=== PATIENT | male | born 1945 | race Caucasian/White ===

== ENCOUNTER 2020-07-06 15:51 | Inpatient (IN) | payer MEDICARE ==
--- NOTE | 2020-07-06 16:14 | ED ---
General Adult HPI - General Chief complaint: Upper Respiratory Infection Stated complaint: Altered Mental Status Time Seen by Provider: 07/06/20 15:59 Source: patient, EMS, RN notes reviewed, old records reviewed Mode of arrival: EMS Limitations: no limitations - History of Present Illness Initial comments: 75-year-old male presenting from outside urgent care for evaluation of low-grade fever, cough, increased confusion. According to the transferring physician the patient does have a baseline of dementia. He is alert and oriented 2 with time my evaluation. He himself has no complaints. No headache. No focal numbness or weakness. He does report a cough which he states he always has. He was transported on 2 L nasal cannula with no prior history of knee for supplemental oxygen.. Stable vitals otherwise. No reported vomiting or diarrhea. No reported chest pain. He has had exposure to coronavirus and outpatient x-ray did show interstitial pneumonia consistent with coronavirus. - Related Data Home Medications Medication Instructions Recorded Confirmed Diltiazem HCl [Cartia Xt] 240 mg PO DAILY 07/06/20 07/06/20 QUEtiapine [SEROquel] 100 mg PO HS 07/06/20 07/06/20 Allergies Allergy/AdvReac Type Severity Reaction Status Date / Time tetracycline Allergy Unknown Verified 07/06/20 17:17 Review of Systems ROS Statement: Those systems with pertinent positive or pertinent negative responses have been documented in the HPI. ROS Other: All systems not noted in ROS Statement are negative. Past Medical History Past Medical History: Hypertension Additional Past Medical History / Comment(s): brain anuerysm, dementia, History of Any Multi-Drug Resistant Organisms: None Reported Past Surgical History: Coronary Bypass/CABG Past Psychological History: No Psychological Hx Reported Smoking Status: Former smoker Past Alcohol Use History: None Reported Past Drug Use History: None Reported General Exam Limitations: no limitations General appearance: alert Head exam: Present: atraumatic, normocephalic Eye exam: Present: normal appearance, PERRL ENT exam: Present: mucous membranes dry Respiratory exam: Present: wheezes, rhonchi, decreased breath sounds. Absent: respiratory distress Cardiovascular Exam: Present: regular rate, normal rhythm GI/Abdominal exam: Present: soft. Absent: distended, tenderness, guarding Extremities exam: Present: normal inspection, normal capillary refill. Absent: pedal edema, calf tenderness Neurological exam: Present: alert. Absent: oriented X3, motor sensory deficit Psychiatric exam: Present: normal affect, normal mood Skin exam: Present: warm, dry, intact. Absent: cyanosis, diaphoretic Course Vital Signs 07/06/20 07/06/20 07/06/20 16:06 16:20 17:27 Temperature 98.8 F Pulse Rate 80 87 Respiratory 18 19 Rate Blood Pressure 132/98 139/96 O2 Sat by Pulse 95 98 87 L Oximetry EKG Findings - EKG Comments: EKG Findings:: EKG: Atrial fibrillation, rate is 79, QRS duration 100, QTC 477, no ST segment elevation. I do not see definitive atrial activity to suggest a sinus rhythm. Medical Decision Making - Medical Decision Making 75-year-old male history of dementia presenting with cough, hypoxia, increased confusion. He has come in contact with coronavirus. He does test positive for coronavirus in the emergency department. X-ray performed at outside hospital does show some bilateral lower lobe infiltrates. Workup reveals normal CBC, normal CMP. LDH, CRP, d-dimer are pending. Case discussed with Dr. Watts who will admit. - Lab Data Result diagrams: 07/06/20 16:20 07/06/20 16:20 Lab Results 07/06/20 07/06/20 07/06/20 Range/Units 16:19 16:20 16:20 WBC 4.8 (3.8-10.6) k/uL RBC 4.91 (4.30-5.90) m/uL Hgb 13.7 (13.0-17.5) gm/dL Hct 41.9 (39.0-53.0) % MCV 85.3 (80.0-100.0) fL MCH 27.9 (25.0-35.0) pg MCHC 32.7 (31.0-37.0) g/dL RDW 13.7 (11.5-15.5) % Plt Count 195 (150-450) k/uL MPV 8.0 Neutrophils % 80 % Lymphocytes % 9 % Monocytes % 9 % Eosinophils % 0 % Basophils % 0 % Neutrophils # 3.9 (1.3-7.7) k/uL Lymphocytes # 0.4 L (1.0-4.8) k/uL Monocytes # 0.4 (0-1.0) k/uL Eosinophils # 0.0 (0-0.7) k/uL Basophils # 0.0 (0-0.2) k/uL PT (9.0-12.0) sec INR (<1.2) APTT (22.0-30.0) sec Sodium (137-145) mmol/L Potassium (3.5-5.1) mmol/L Chloride (98-107) mmol/L Carbon Dioxide (22-30) mmol/L Anion Gap mmol/L BUN (9-20) mg/dL Creatinine (0.66-1.25) mg/dL Est GFR (CKD-EPI)AfAm (>60 ml/min/1.73 sqM) Est GFR (CKD-EPI)NonAf (>60 ml/min/1.73 sqM) Glucose (74-99) mg/dL POC Glucose (mg/dL) 99 (75-99) mg/dL POC Glu Compressor Station Engineer Chief ID Elisabet Tom Calcium (8.4-10.2) mg/dL Total Bilirubin (0.2-1.3) mg/dL AST (17-59) U/L ALT (4-49) U/L Alkaline Phosphatase (38-126) U/L NT-Pro-B Natriuret Pep pg/mL Total Protein (6.3-8.2) g/dL Albumin (3.5-5.0) g/dL Coronavirus (PCR) Detected A (Not Detectd) 07/06/20 07/06/20 07/06/20 Range/Units 16:20 16:20 16:20 WBC (3.8-10.6) k/uL RBC (4.30-5.90) m/uL Hgb (13.0-17.5) gm/dL Hct (39.0-53.0) % MCV (80.0-100.0) fL MCH (25.0-35.0) pg MCHC (31.0-37.0) g/dL RDW (11.5-15.5) % Plt Count (150-450) k/uL MPV Neutrophils % % Lymphocytes % % Monocytes % % Eosinophils % % Basophils % % Neutrophils # (1.3-7.7) k/uL Lymphocytes # (1.0-4.8) k/uL Monocytes # (0-1.0) k/uL Eosinophils # (0-0.7) k/uL Basophils # (0-0.2) k/uL PT 10.9 (9.0-12.0) sec INR 1.0 (<1.2) APTT 26.8 (22.0-30.0) sec Sodium 137 (137-145) mmol/L Potassium 4.0 (3.5-5.1) mmol/L Chloride 101 (98-107) mmol/L Carbon Dioxide 26 (22-30) mmol/L Anion Gap 10 mmol/L BUN 28 H (9-20) mg/dL Creatinine 1.09 (0.66-1.25) mg/dL Est GFR (CKD-EPI)AfAm 76 (>60 ml/min/1.73 sqM) Est GFR (CKD-EPI)NonAf 66 (>60 ml/min/1.73 sqM) Glucose 104 H (74-99) mg/dL POC Glucose (mg/dL) (75-99) mg/dL POC Glu Compressor Station Engineer Chief ID Calcium 8.5 (8.4-10.2) mg/dL Total Bilirubin 0.7 (0.2-1.3) mg/dL AST 27 (17-59) U/L ALT 24 (4-49) U/L Alkaline Phosphatase 75 (38-126) U/L NT-Pro-B Natriuret Pep 4730 pg/mL Total Protein 7.1 (6.3-8.2) g/dL Albumin 4.3 (3.5-5.0) g/dL Coronavirus (PCR) (Not Detectd) Disposition Clinical Impression: Pneumonia due to COVID-19 virus, Hypoxia Disposition: ADMITTED IP TO THIS HOSP Condition: Stable Is patient prescribed a controlled substance at d/c from ED?: No Referrals: Roc Brownlee DO [Primary Care Provider] - 1-2 days Decision to Admit Reason: Admit from EC Decision Date: 07/06/20 Decision Time: 17:40
[2020-07-06 16:21] LABS: Glucose,Whole Blood 99 mg/dL (75-99)
[2020-07-06 16:32] LABS: Basophils % (A) 0 %; Eosinophils % (A) 0 %; HCT 41.9 % (39.0-53.0); HGB 13.7 gm/dL (13.0-17.5); Lymphocytes # (A) 0.4 k/uL (1.0-4.8); Lymphocytes % (A) 9 %; MCH 27.9 pg (25.0-35.0); MCHC 32.7 g/dL (31.0-37.0); MCV 85.3 fL (80.0-100.0); Monocytes # (A) 0.4 k/uL (0-1.0); Monocytes % (A) 9 %; Neutrophils # (A) 3.9 k/uL (1.3-7.7); Neutrophils % (A) 80 %; Platelet Count 195 k/uL (150-450); RBC 4.91 m/uL (4.30-5.90); RDW 13.7 % (11.5-15.5); WBC 4.8 k/uL (3.8-10.6)
[2020-07-06 16:40] LABS: Partial Thromboplastin Time 26.8 sec (22.0-30.0); Prothrombin Time 10.9 sec (9.0-12.0)
[2020-07-06 16:41] LABS: Albumin 4.3 g/dL (3.5-5.0); Calcium 8.5 mg/dL (8.4-10.2); Total Bilirubin 0.7 mg/dL (0.2-1.3); Total Protein 7.1 g/dL (6.3-8.2)
--- NOTE | 2020-07-06 17:12 | CT ---
EXAM: CT brain wo con CLINICAL HISTORY: Altered mental status. COMPARISON: None TECHNIQUE: Contiguous axial noncontrast images of the brain were obtained. Coronal and sagittal refor mats were generated and reviewed. Automated does control was used for this exam. FINDINGS: There is no evidence for intracranial hemorrhage, mass effect or midline shift. There is moderate rig ht frontal lobe encephalomalacia with right frontotemporal craniotomy seen. There is also cystic ence phalomalacia of the left frontal lobe. There is moderate white matter disease and parenchymal loss. A neurysmal clip within the sellar region is seen. Ventricular size and configuration is within normal limits for degree of parenchymal volume. The paranasal sinuses are clear. The mastoid air cells are clear. No evidence for calvarial fracture. IMPRESSION: No acute intracranial abnormality. 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
[2020-07-06] MEDS ORDERED: DEXAMETHASONE SOD PHOSPHATE 10 MG/ML 1 ML VIAL IV STA (17:25)
[2020-07-06] MEDS ORDERED: ACETAMINOPHEN TAB 325 MG TAB PO PRN (17:37)
[2020-07-06] MEDS ORDERED: NALOXONE 0.4 MG/ML 1 ML VIAL IV PRN (17:37)
[2020-07-06 18:26] LABS: C Reactive Protein 152.5 mg/L (<10.0)
[2020-07-06 18:46] LABS: Appearance,Urine Clear (Clear); Bacteria,Urine Rare /hpf; Bilirubin,Urine Negative (Negative); Blood,Urine Negative (Negative); Color,Urine Yellow; Glucose,Urine (UA) Negative (Negative); Hyaline Casts,Urine 4 /lpf (0-2); Ketones,Urine Negative (Negative); Leukocyte Esterase,Urine Negative (Negative); Mucus,Urine Rare /hpf; Nitrite,Urine Negative (Negative); PH, Urine 5.5 (5.0-8.0); Protein,Urine 2+ (Negative); RBC,Urine 1 /hpf (0-5); Specific Gravity,Urine 1.026 (1.001-1.035); Urobilinogen,Urine <2.0 mg/dL (<2.0); WBC,Urine 2 /hpf (0-5)
--- NOTE | 2020-07-06 23:08 | P.HPIM ---
History of Present Illness H&P Date: 07/06/20 Patient is a 75-year-old male with a PMH of dementia, history of intracerebral hemorrhage, and A. fib who was sent in to the emergency room from an urgent care center due to hypoxia and COVID pneumonia. History obtained from the daughter via telephone (Audra Javed [phone]). She reports that the patient lives with her and that she was diagnosed with COVID a few days ago. The patient is currently developed low-grade fevers and a cough 2 days ago. They took him to an urgent care center earlier today for evaluation. When they returned to pick him up, the urgent care center had sent him via EMS to the emergency room. The daughter notes that her father has a history of moderate dementia. He is normally oriented to self and sometimes to place but not to time. She reports that he does tend to get worse at night. The patient was seen and evaluated in the emergency room at the bedside. He was a very poor historian and could not relay why he was brought into the emergency room or the events of the day. During the review of systems, the patient answered no to all complaints inclu ding coughing despite having a cough during the interview. The daughter noted that her father appeared to be more confused today. The patient underwent an extensive evaluation in the emergency room which was all reviewed. Vital signs revealed hypoxia with SpO2 of 87% on 2 L nasal cannula oxygen. CT brain was negative for acute changes. EKG revealed A. fib at [address]/T-wave changes noted as reviewed by me. Laboratory evaluation revealed coronavirus PCR positive with CRP 152. Review of Systems Pertinent positives and negatives as discussed in HPI, a complete review of systems was performed and all other systems are negative. Past Medical History Past Medical History: Hypertension Additional Past Medical History / Comment(s): brain anuerysm, dementia, History of Any Multi-Drug Resistant Organisms: None Reported Past Surgical History: Coronary Bypass/CABG Past Psychological History: No Psychological Hx Reported Smoking Status: Former smoker Past Alcohol Use History: None Reported Past Drug Use History: None Reported Medications and Allergies Home Medications Medication Instructions Recorded Confirmed Type Diltiazem HCl [Cartia Xt] 240 mg PO DAILY 07/06/20 07/06/20 History QUEtiapine [SEROquel] 100 mg PO HS 07/06/20 07/06/20 History Allergies Allergy/AdvReac Type Severity Reaction Status Date / Time tetracycline Allergy Unknown Verified 07/06/20 17:17 Physical Exam Vitals: Vital Signs Temp Pulse Resp BP Pulse Ox 07/06/20 20:00 100.3 F H 98 18 150/85 95 07/06/20 18:22 91 18 159/91 94 L 07/06/20 17:27 87 19 139/96 87 L 07/06/20 16:20 98 07/06/20 16:06 98.8 F 80 18 132/98 95 Intake and Output 07/06/20 07/06/20 07/06/20 06:59 14:59 22:59 Other: Weight 77.111 kg General: non toxic, no distress, appears at stated age, overweight Derm: no unusual rashes/lesions no unusual ecchymoses, warm, dry Head: atraumatic, normocephalic, symmetric Eyes: EOMI, no lid lag, anicteric sclera, pupils equal round reactive to light ENT: Nose and ears atraumatic, no thrush, no pharyngeal erythema Neck: No thyromegaly, no cervical lymphadenopathy, trachea midline, supple Mouth: no lip lesion, mucus membranes moist Cardiovascular: S1S2 reg, no murmur, positive posterior tibial pulse bilateral, no edema, capillary refill less than 2 seconds Lungs: Diffuse bilateral rhonchi, no accessory muscle use, no wheezing Abdominal: soft, nontender to palpation, no guarding, no appreciable organomegaly, normal bowel sounds Ext: no gross muscle atrophy, muscle strength 5 out of 5 in all 4 extremities grossly, no contractures, Neuro: CN II-XI grossly intact, light touch intact all 4 extremities, finger to nose within normal limits, Psych: Alert, awake, oriented to person only, not oriented to time or place Results CBC & Chem 7: 07/06/20 16:20 07/06/20 16:20 Labs: Abnormal Lab Results - Last 24 Hours (Table) 07/06/20 07/06/20 07/06/20 Range/Units 16:20 16:20 16:20 Lymphocytes # 0.4 L (1.0-4.8) k/uL D-Dimer (<0.60) mg/L FEU BUN 28 H (9-20) mg/dL Glucose 104 H (74-99) mg/dL C-Reactive Protein (<10.0) mg/L Urine Protein (Negative) Urine Bacteria (None) /hpf Hyaline Casts (0-2) /lpf Urine Mucus (None) /hpf Coronavirus (PCR) Detected A (Not Detectd) 07/06/20 07/06/20 07/06/20 Range/Units 17:52 17:52 18:22 Lymphocytes # (1.0-4.8) k/uL D-Dimer 0.90 H (<0.60) mg/L FEU BUN (9-20) mg/dL Glucose (74-99) mg/dL C-Reactive Protein 152.5 H (<10.0) mg/L Urine Protein 2+ H (Negative) Urine Bacteria Rare H (None) /hpf Hyaline Casts 4 H (0-2) /lpf Urine Mucus Rare H (None) /hpf Coronavirus (PCR) (Not Detectd) Assessment and Plan Plan: COVID-19 pneumonitis with acute hypoxic respiratory failure -Continue dexamethasone -Supplemental oxygen -Monitor inflammatory markers -Pulmonary consult -Zinc, vitamin C, melatonin, vitamin D Acute metabolic encephalopathy with baseline dementia, likely secondary to on- going pneumonia -Continue with home Seroquel Afib, not on AC due to history of IC bleeding -C/w home Cardizem dose DVT prophylaxis -Lovenox The patient is admitted with an anticipated greater than 2 midnight stay for evaluation of COVID CODE STATUS: Full Code Discussed with: Patient, daughter Anticipated discharge date: 2-[address]: home A total of 35 minutes was spent on the care of this complex patient more than 50% of the time was spent in counseling and care coordination.
[2020-07-07 07:48] LABS: HCT 42.6 % (39.0-53.0); HGB 14.4 gm/dL (13.0-17.5); MCH 28.7 pg (25.0-35.0); MCHC 33.7 g/dL (31.0-37.0); Mean Platelet Volume 8.2; Platelet Count 201 k/uL (150-450); RBC 5.01 m/uL (4.30-5.90); RDW 13.5 % (11.5-15.5); WBC 3.4 k/uL (3.8-10.6)
[2020-07-07 07:52] LABS: ALT 25 U/L (4-49); AST 33 U/L (17-59); African American GFR (CKD) >90 (>60 ml/min/1.73 sqM); Albumin 4.2 g/dL (3.5-5.0); Albumin/Globulin Ratio 1.5; Alkaline Phosphatase 78 U/L (38-126); Anion Gap 11 mmol/L; Blood Urea Nitrogen 22 mg/dL (9-20); Calcium 8.4 mg/dL (8.4-10.2); Carbon Dioxide 26 mmol/L (22-30); Chloride 98 mmol/L (98-107); Globulin 2.8 g/dL; Glucose 122 mg/dL (74-99); Non-African American GFR(CKD) 87 (>60 ml/min/1.73 sqM); Potassium 4.4 mmol/L (3.5-5.1); Sodium 135 mmol/L (137-145); Total Bilirubin 0.8 mg/dL (0.2-1.3)
--- NOTE | 2020-07-07 08:06 | XR ---
EXAMINATION TYPE: XR chest 1V portable DATE OF EXAM: 07/07/2020 COMPARISON: 07/06/2020 HISTORY: Shortness of breath TECHNIQUE: Single frontal view of the chest is obtained. FINDINGS: There is mild interstitial opacity in the lung bases bilaterally mid and upper lung zones are essenti ally clear. The heart size is normal and the pulmonary vasculature is not congested. There are sterna l wires. The osseous structures are otherwise intact. There is been no interval change. Impression: mild interstitial opacity in the lung bases unchanged since the prior study. Findings could reflect either acute or chronic changes and clinical correlation is recommended.
[2020-07-07] MEDS: ALBUTEROL HFA INHALER INHALATION SCH ×4 (08:24→21:25)
[2020-07-07] MEDS: ASCORBIC ACID 500 MG TAB PO SCH (08:42)
[2020-07-07] MEDS: dexAMETHasone 2 MG TAB PO SCH (08:43)
[2020-07-07] MEDS: ZINC SULFATE 220 MG CAP PO SCH (08:43)
[2020-07-07] MEDS: CHOLECALCIFEROL 25 MCG (1000 IU) TABLET PO SCH (08:43)
[2020-07-07] MEDS: ENOXAPARIN 40 MG/0.4 ML SYRINGE SQ SCH (08:43)
[2020-07-07] MEDS: guaiFENesin 600 MG TABLET.ER PO SCH ×2 (08:43→20:12)
[2020-07-07] MEDS ORDERED: CHOLECALCIFEROL 25 MCG (1000 IU) TABLET PO SCH (09:00)
[2020-07-07] MEDS: DILTIAZEM CD 240 MG CAP.ER.24H PO SCH (09:43)
--- NOTE | 2020-07-07 11:09 | P.CNPUL ---
History of Present Illness Consult date: 07/07/20 Reason for consult: dyspnea History of present illness: 75-year-old male patient, hospitalized for covert safety-related pneumonia. The patient was diagnosed having covid went urgent care outside the hospital few days ago and the diagnosis was confirmed again yesterday in the hospital. The patient was apparently running a low-grade fever for around 2 days. He is a very poor historian. He does have underlying dementia. He has underlying intracranial cerebral hemorrhage history along with history of atrial fibrillation. In terms of his chest x-ray, the patient's chest x-ray revealed pulmonary infiltrates in the lower lobes more so in the right lower lobe. He has post thoracotomy changes on his chest x-ray. His blood work shows a CRP of 152, LDH of 468, normal renal function, normal liver function tests, the white cell count today is at 3.4 with a hemoglobin of 14.4. He did have some lymphopenia. This is consistent with Covid manipulated pneumonia. His d-dimer is at 0.9. Currently he is on 2 L of oxygen by nasal cannula. He is also on Decadron 6 mg and Lovenox 40 mg subcu. He did have a low-grade fever yesterday of 100.3. He is currently living with his son. No home oxygen. Review of Systems ROS unobtainable: due to mental status Past Medical History Past Medical History: Coronary Artery Disease (CAD), Hypertension Additional Past Medical History / Comment(s): brain anuerysm with a previous intracranial hemorrhage, chronic atrial fibrillation, dementia, CAD and the patient has undergone a previous bypass surgery, hypertension, former smoker History of Any Multi-Drug Resistant Organisms: None Reported Past Surgical History: Coronary Bypass/CABG Past Psychological History: No Psychological Hx Reported Smoking Status: Former smoker Past Alcohol Use History: None Reported Past Drug Use History: None Reported Medications and Allergies Home Medications Medication Instructions Recorded Confirmed Type Diltiazem HCl [Cartia Xt] 240 mg PO DAILY 07/06/20 07/07/20 History QUEtiapine [SEROquel] 100 mg PO HS 07/06/20 07/07/20 History Allergies Allergy/AdvReac Type Severity Reaction Status Date / Time tetracycline Allergy Unknown Verified 07/06/20 17:17 Physical Exam Vitals: Vital Signs Temp Pulse Pulse Resp BP BP Pulse Ox 07/07/20 10:00 98.0 F 61 16 165/109 91 L 07/07/20 06:00 98.7 F 92 19 163/93 94 L 07/07/20 03:15 98.9 F 95 20 159/90 92 L 07/06/20 21:00 99.9 F H 99 21 146/89 91 L 07/06/20 20:00 100.3 F H 98 18 150/85 95 07/06/20 18:22 91 18 159/91 94 L 07/06/20 17:27 87 19 139/96 87 L 07/06/20 16:20 98 07/06/20 16:06 98.8 F 80 18 132/98 95 Intake and Output 07/06/20 07/07/20 07/07/20 22:59 06:59 14:59 Intake Total 250 Balance 250 Intake: Oral 250 Other: Voiding Method Toilet Toilet Diaper Diaper Incontinent Incontinent # Voids 1 Weight 77.111 kg The patient appeared well nourished and normally developed. Vital signs as docu mented. Head exam is unremarkable. No scleral icterus or corneal arcus noted. Neck is without jugular venous distension, thyromegaly, or carotid bruits. Carotid upstrokes are brisk bilaterally. Lungs are clear to auscultation and percussion. Crackles are present in the right lung base and the patient has post thoracotomy scar over the anterior chest area. Cardiac exam reveals the PMI to be normally sized and situated. Rhythm is regular. First and second heart sounds normal. No murmurs, rubs or gallops. Abdominal exam reveals normal bowel sounds, no masses, no organomegaly and no aortic enlargement. Extremities are nonedematous and both femoral and pedal pulses are normal.Examination of the skin revealed no evidence of significant rashes, suspicious appearing nevi or other concerning lesions. Neurologically the patient does not have any focal neurological deficits. Nevertheless, the patient has impairment of the cognitive functions. Poor memory. Poor concentration. For information delivery by the patient. Results - Laboratory Findings CBC and BMP: 07/07/20 06:23 07/07/20 06:23 PT/INR, D-dimer PT 10.9 sec (9.0-12.0) 07/06/20 16:20 INR 1.0 (<1.2) 03/26/21 16:20 D-Dimer 0.90 mg/L FEU (<0.60) H 07/06/20 17:52 Abnormal lab findings: Abnormal Labs 07/06/20 07/06/20 07/06/20 16:20 16:20 16:20 WBC Lymphocytes # 0.4 L D-Dimer Sodium BUN 28 H Glucose 104 H C-Reactive Protein Urine Protein Urine Bacteria Hyaline Casts Urine Mucus Coronavirus (PCR) Detected A 07/06/20 07/06/20 07/06/20 17:52 17:52 18:22 WBC Lymphocytes # D-Dimer 0.90 H Sodium BUN Glucose C-Reactive Protein 152.5 H Urine Protein 2+ H Urine Bacteria Rare H Hyaline Casts 4 H Urine Mucus Rare H Coronavirus (PCR) 07/07/20 07/07/20 06:23 06:23 WBC 3.4 L Lymphocytes # D-Dimer Sodium 135 L BUN 22 H Glucose 122 H C-Reactive Protein Urine Protein Urine Bacteria Hyaline Casts Urine Mucus Coronavirus (PCR) - Diagnostic Findings Chest x-ray: image reviewed Assessment and Plan Plan: 1 acute Covid 19 related pneumonia. The patient has limited infiltration of the lung bases more so on the right. The patient is currently hypoxic at 2 L about 2 by nasal cannula and the patient was started on Decadron. He'll be started on Remdesivir as the patient falls within the window for this treatment. 2 advanced dementia 3 coronary artery disease and a previous bypass surgery 4 chronic A. fib fibrillation on no anticoagulants 5 history of CVA/intracranial hemorrhage 6 hypertension Plan Continue Decadron 6 mg by mouth daily VIT C, D and Zinc Add Remdesivir per protocol as the patient falls within the window and the patient is mildly hypoxic Lovenox 40 mg subcu for DVT prophylaxis, current d-dimer is low Monitor overall pulmonary progress We'll continue to follow
--- NOTE | 2020-07-07 11:57 | P.PN ---
Subjective Progress Note Date: 07/07/20 Patient is doing fairly well today. He is alert to himself and to the place. He denies any specific concerns or complaints. He is pleasantly confused Objective - Vital Signs Vital signs: Vital Signs Temp 98.0 F 07/07/20 10:00 Pulse 61 07/07/20 10:00 Resp 16 07/07/20 10:00 BP 165/109 07/07/20 10:00 Pulse Ox 91 L 07/07/20 10:00 Intake & Output 07/06/20 07/07/20 07/07/20 18:59 06:59 18:59 Intake Total 250 Balance 250 Weight 77.111 kg 77.111 kg Intake: Oral 250 Other: Voiding Method Toilet Toilet Diaper Diaper Incontinent Incontinent # Voids 1 - Exam General: The patient is awake and alert, in no distress Eye: there is normal conjunctiva bilaterally. Neck: The neck is supple, there is no JVD. Cardiovascular: Normal S1-S2, no S3-S4, no murmurs. Respiratory: Lungs clear to auscultation bilaterally Gastrointestinal: Abdomen is soft, nontender Musculoskeletal: There is no pedal edema. Neurological:. Speech is normal. Skin: Skin is warm and dry - Labs CBC & Chem 7: 07/07/20 06:23 07/07/20 06:23 Labs: Abnormal Lab Results - Last 24 Hours (Table) 07/06/20 07/06/20 07/06/20 Range/Units 16:20 16:20 16:20 WBC (3.8-10.6) k/uL Lymphocytes # 0.4 L (1.0-4.8) k/uL D-Dimer (<0.60) mg/L FEU Sodium (137-145) mmol/L BUN 28 H (9-20) mg/dL Glucose 104 H (74-99) mg/dL C-Reactive Protein (<10.0) mg/L Urine Protein (Negative) Urine Bacteria (None) /hpf Hyaline Casts (0-2) /lpf Urine Mucus (None) /hpf Coronavirus (PCR) Detected A (Not Detectd) 07/06/20 07/06/20 07/06/20 Range/Units 17:52 17:52 18:22 WBC (3.8-10.6) k/uL Lymphocytes # (1.0-4.8) k/uL D-Dimer 0.90 H (<0.60) mg/L FEU Sodium (137-145) mmol/L BUN (9-20) mg/dL Glucose (74-99) mg/dL C-Reactive Protein 152.5 H (<10.0) mg/L Urine Protein 2+ H (Negative) Urine Bacteria Rare H (None) /hpf Hyaline Casts 4 H (0-2) /lpf Urine Mucus Rare H (None) /hpf Coronavirus (PCR) (Not Detectd) 07/07/20 07/07/20 Range/Units 06:23 06:23 WBC 3.4 L (3.8-10.6) k/uL Lymphocytes # (1.0-4.8) k/uL D-Dimer (<0.60) mg/L FEU Sodium 135 L (137-145) mmol/L BUN 22 H (9-20) mg/dL Glucose 122 H (74-99) mg/dL C-Reactive Protein (<10.0) mg/L Urine Protein (Negative) Urine Bacteria (None) /hpf Hyaline Casts (0-2) /lpf Urine Mucus (None) /hpf Coronavirus (PCR) (Not Detectd) Assessment and Plan Assessment: This is a 75-year-old male with past medical history noted below significant for advanced dementia who presented to the emergency room with hypoxia. Patient was evaluated in the ER and admitted to the hospital for further management of his medical problems noted below. 1. COVD-19 pneumonia: Seen and evaluated by pulmonary. Started on Decadron day #2 and Remdesivir day #1. Vitamin D, vitamin C, zinc, and melatonin. We will continue supportive care. 2. Acute hypoxic respiratory failure currently on 2 L of oxygen via nasal cannula. 3. Sepsis without septic shock. Secondary to #1. Lactic acid is normal. Patient received IV fluid hydration. 4. Chronic atrial fibrillation, heart rate well controlled. not on anticoagulation secondary to history of intracranial bleed. 5. Advanced dementia with some confusion on presentation may represent acute metabolic encephalopathy. Now resolved. Mental status back to baseline. 6. Chronic medical problems coronary artery disease with history of CABG,. 7. DVT prophylaxis with subcu Lovenox
[2020-07-07] MEDS ORDERED: REMDESIVIR 200 MG in SODIUM CHLORIDE 0.9% 250 ML IVPB ONE (12:00)
[2020-07-07] MEDS: MELATONIN 5 MG TABLET PO SCH (20:12)
[2020-07-07] MEDS: QUEtiapine 100 MG TAB PO SCH (20:13)
[2020-07-08 07:37] LABS: Basophils % (A) 0 %; Eosinophils % (A) 0 %; HCT 41.6 % (39.0-53.0); HGB 13.8 gm/dL (13.0-17.5); Lymphocytes # (A) 0.6 k/uL (1.0-4.8); Lymphocytes % (A) 7 %; MCHC 33.2 g/dL (31.0-37.0); MCV 84.3 fL (80.0-100.0); Mean Platelet Volume 8.6; Monocytes # (A) 0.6 k/uL (0-1.0); Monocytes % (A) 6 %; Neutrophils # (A) 7.8 k/uL (1.3-7.7); Neutrophils % (A) 86 %; Platelet Count 227 k/uL (150-450); RBC 4.94 m/uL (4.30-5.90); RDW 13.8 % (11.5-15.5)
[2020-07-08] MEDS: ALBUTEROL HFA INHALER INHALATION SCH ×4 (08:39→20:30)
[2020-07-08 09:12] LABS: Anion Gap 8.8 mmol/L (4.00-12.00); C Reactive Protein 5.3 mg/dL (0.0-0.8); Calcium 8.5 mg/dL (8.7-10.3); Carbon Dioxide 26.2 mmol/L (21.6-31.8); Non-African American GFR(CKD) 73.3 (60.0-200.0); Potassium 4.2 mmol/L (3.5-5.5)
[2020-07-08] MEDS: ENOXAPARIN 40 MG/0.4 ML SYRINGE SQ SCH (09:16)
[2020-07-08] MEDS: CHOLECALCIFEROL 25 MCG (1000 IU) TABLET PO SCH (09:16)
[2020-07-08] MEDS: dexAMETHasone 2 MG TAB PO SCH (09:16)
[2020-07-08] MEDS: DILTIAZEM CD 240 MG CAP.ER.24H PO SCH (09:16)
[2020-07-08] MEDS: ASCORBIC ACID 500 MG TAB PO SCH (09:16)
[2020-07-08] MEDS: guaiFENesin 600 MG TABLET.ER PO SCH ×2 (09:16→21:35)
[2020-07-08] MEDS: ZINC SULFATE 220 MG CAP PO SCH (09:16)
[2020-07-08 09:23] LABS: Ferritin 918.9 ng/mL (22.0-322.0)
--- NOTE | 2020-07-08 11:41 | P.PN ---
Subjective Progress Note Date: 07/08/20 Patient is doing fairly well today. He denies any specific concerns or complaints. He is pleasantly confused Objective - Vital Signs Vital signs: Vital Signs Temp 98.6 F 07/08/20 10:00 Pulse 79 07/08/20 10:00 Resp 18 07/08/20 10:00 BP 142/88 07/08/20 10:00 Pulse Ox 93 L 07/08/20 10:00 Intake & Output 07/07/20 07/08/20 07/08/20 18:59 06:59 18:59 Other: Voiding Method Toilet Toilet Toilet Diaper Diaper Diaper Incontinent Incontinent Incontinent # Voids 2 - Exam General: The patient is awake and alert, in no distress Eye: there is normal conjunctiva bilaterally. Neck: The neck is supple, there is no JVD. Cardiovascular: Normal S1-S2, no S3-S4, no murmurs. Respiratory: Lungs clear to auscultation bilaterally Gastrointestinal: Abdomen is soft, nontender Musculoskeletal: There is no pedal edema. Neurological:. Speech is normal. Skin: Skin is warm and dry - Labs CBC & Chem 7: 07/08/20 06:22 07/08/20 06:22 Labs: Abnormal Lab Results - Last 24 Hours (Table) 07/08/20 07/08/20 07/08/20 Range/Units 06:22 06:22 06:22 Neutrophils # 7.8 H (1.3-7.7) k/uL Lymphocytes # 0.6 L (1.0-4.8) k/uL D-Dimer 0.62 H (<0.60) mg/L FEU BUN 32.0 H (9.0-27.0) mg/dL BUN/Creatinine Ratio 32.00 H (12.00-20.00) Ratio Calcium 8.5 L (8.7-10.3) mg/dL Ferritin 918.9 H (22.0-322.0) ng/mL C-Reactive Protein 5.3 H (0.0-0.8) mg/dL Assessment and Plan Assessment: This is a 75-year-old male with past medical history noted below significant for advanced dementia who presented to the emergency room with hypoxia. Patient was evaluated in the ER and admitted to the hospital for further management of his medical problems noted below. 1. COVD-19 pneumonia: Seen and evaluated by pulmonary. Started on Decadron day #3 and Remdesivir day #2. Vitamin D, vitamin C, zinc, and melatonin. We will continue supportive care. 2. Acute hypoxic respiratory failure currently on 2 L of oxygen via nasal cannula. 3. Sepsis without septic shock. Secondary to #1. Lactic acid is normal. Patient received IV fluid hydration. 4. Chronic atrial fibrillation, heart rate well controlled. not on anticoagulation secondary to history of intracranial bleed. 5. Advanced dementia with some confusion on presentation may represent acute metabolic encephalopathy. Now resolved. Mental status back to baseline. 6. Chronic medical problems coronary artery disease with history of CABG,. 7. DVT prophylaxis with subcu Lovenox
[2020-07-08] MEDS: REMDESIVIR 100 MG in SODIUM CHLORIDE 0.9% 250 ML IVPB SCH (11:49)
--- NOTE | 2020-07-08 12:20 | P.PN ---
Subjective Progress Note Date: 07/08/20 75-year-old male patient, hospitalized for COVID 19-related pneumonia. The patient was diagnosed having covid went urgent care outside the hospital few days ago and the diagnosis was confirmed again yesterday in the hospital. The patient was apparently running a low-grade fever for around 2 days. He is a very poor historian. He does have underlying dementia. He has underlying intracranial cerebral hemorrhage history along with history of atrial fibrillation. In terms of his chest x-ray, the patient's chest x-ray revealed pulmonary infiltrates in the lower lobes more so in the right lower lobe. He has post thoracotomy changes on his chest x-ray. His blood work shows a CRP of 152, LDH of 468, normal renal function, normal liver function tests, the white cell count today is at 3.4 with a hemoglobin of 14.4. He did have some lymphopenia. This is consistent with Covid manipulated pneumonia. His d-dimer is at 0.9. Currently he is on 2 L of oxygen by nasal cannula. He is also on Decadron 6 mg and Lovenox 40 mg subcu. He did have a low-grade fever yesterday of 100.3. He is currently living with his son. No home oxygen. His evaluation of 07/08/2020, the patient is doing well. He is currently on oxygen at 2 L and his current pulse ox is 98%. He was hospitalized yesterday a nd he was having some fever and shortness of breath. He d-dimer was 0.9. His inflammatory markers were mildly elevated. He was started on Decadron. He was started on REM and he is on day #2. On today's evaluation, his blood work shows no major abnormalities in terms of his CBC. He does have some lymphopenia. His ferritin level is 918, his LDH level is down to 236 and his CRP level is at 5.3. No other significant events otherwise for now. His resting comfortably in bed. He is on Lovenox for Objective - Vital Signs Vital signs: Vital Signs Temp 98.6 F 07/08/20 10:00 Pulse 79 07/08/20 10:00 Resp 18 07/08/20 10:00 BP 142/88 07/08/20 10:00 Pulse Ox 93 L 07/08/20 10:00 Intake & Output 03/07/08/20 07/08/20 18:59 06:59 18:59 Other: Voiding Method Toilet Toilet Toilet Diaper Diaper Diaper Incontinent Incontinent Incontinent # Voids 2 - Exam The patient appeared well nourished and normally developed. Vital signs as documented. Head exam is unremarkable. No scleral icterus or corneal arcus noted. Neck is without jugular venous distension, thyromegaly, or carotid bruits. Carotid upstrokes are brisk bilaterally. Lungs are clear to auscultation and percussion. Crackles are present in the right lung base and the patient has post thoracotomy scar over the anterior chest area. Cardiac exam reveals the PMI to be normally sized and situated. Rhythm is regular. First and second heart sounds normal. No murmurs, rubs or gallops. Abdominal exam reveals normal bowel sounds, no masses, no organomegaly and no aortic enlargement. Extremities are nonedematous and both femoral and pedal pulses are normal.Examination of the skin revealed no evidence of significant rashes, suspicious appearing nevi or other concerning lesions. Neurologically the patient does not have any focal neurological deficits. Nevertheless, the patient has impairment of the cognitive functions. Poor memory. Poor concentration. For information delive ry by the patient. - Labs CBC & Chem 7: 07/08/20 06:22 07/08/20 06:22 Labs: Abnormal Lab Results - Last 24 Hours (Table) 07/08/20 07/08/20 07/08/20 Range/Units 06:22 06:22 06:22 Neutrophils # 7.8 H (1.3-7.7) k/uL Lymphocytes # 0.6 L (1.0-4.8) k/uL D-Dimer 0.62 H (<0.60) mg/L FEU BUN 32.0 H (9.0-27.0) mg/dL BUN/Creatinine Ratio 32.00 H (12.00-20.00) Ratio Calcium 8.5 L (8.7-10.3) mg/dL Ferritin 918.9 H (22.0-322.0) ng/mL C-Reactive Protein 5.3 H (0.0-0.8) mg/dL Assessment and Plan Plan: 1 acute Covid 19 related pneumonia. The patient has limited infiltration of the lung bases more so on the right. The patient is currently hypoxic at 2 L about 2 by nasal cannula and the patient was started on Decadron/ Remdesivir 2 advanced dementia 3 coronary artery disease and a previous bypass surgery 4 chronic A. fib fibrillation on no anticoagulants 5 history of CVA/intracranial hemorrhage 6 hypertension Plan Continue Decadron 6 mg by mouth daily VIT C, D and Zinc Remdesivir per protocol as the patient falls within the window and the patient is mildly hypoxic , day #2 Lovenox 40 mg subcu for DVT prophylaxis, current d-dimer is low Monitor overall pulmonary progress We'll continue to follow
[2020-07-08] MEDS: MELATONIN 5 MG TABLET PO SCH (21:35)
[2020-07-08] MEDS: QUEtiapine 100 MG TAB PO SCH (21:35)
[2020-07-09] MEDS: ZINC SULFATE 220 MG CAP PO SCH (08:26)
[2020-07-09] MEDS: ENOXAPARIN 40 MG/0.4 ML SYRINGE SQ SCH (08:26)
[2020-07-09] MEDS: ASCORBIC ACID 500 MG TAB PO SCH (08:26)
[2020-07-09] MEDS: CHOLECALCIFEROL 25 MCG (1000 IU) TABLET PO SCH (08:26)
[2020-07-09] MEDS: guaiFENesin 600 MG TABLET.ER PO SCH ×2 (08:26→20:49)
[2020-07-09] MEDS: DILTIAZEM CD 240 MG CAP.ER.24H PO SCH (08:26)
[2020-07-09] MEDS: REMDESIVIR 100 MG in SODIUM CHLORIDE 0.9% 250 ML IVPB SCH (08:27)
[2020-07-09] MEDS: ALBUTEROL HFA INHALER INHALATION SCH ×4 (08:55→21:12)
[2020-07-09] MEDS: dexAMETHasone 2 MG TAB PO SCH (12:16)
--- NOTE | 2020-07-09 13:38 | P.PN ---
Subjective Progress Note Date: 07/09/20 Patient is doing fairly well today. He denies any specific concerns or complaints. He is pleasantly confused Objective - Vital Signs Vital signs: Vital Signs Temp 97.9 F 07/09/20 09:48 Pulse 76 07/09/20 09:48 Resp 20 07/09/20 09:48 BP 129/76 07/09/20 09:48 Pulse Ox 91 L 07/09/20 09:48 Intake & Output 07/08/20 07/09/20 07/09/20 18:59 06:59 18:59 Other: Voiding Method Toilet Toilet Diaper Diaper Incontinent Incontinent # Voids 2 - Exam General: The patient is awake and alert, in no distress Eye: there is normal conjunctiva bilaterally. Neck: The neck is supple, there is no JVD. Cardiovascular: Normal S1-S2, no S3-S4, no murmurs. Respiratory: Lungs clear to auscultation bilaterally Gastrointestinal: Abdomen is soft, nontender Musculoskeletal: There is no pedal edema. Neurological:. Speech is normal. Skin: Skin is warm and dry - Labs CBC & Chem 7: 07/08/20 06:22 07/08/20 06:22 Labs: Abnormal Lab Results - Last 24 Hours (Table) 07/08/20 Range/Units 07:10 Procalcitonin 0.32 H (0.02-0.09) ng/mL Assessment and Plan Assessment: This is a 75-year-old male with past medical history noted below significant for advanced dementia who presented to the emergency room with hypoxia. Patient was evaluated in the ER and admitted to the hospital for further management of his medical problems noted below. 1. COVD-19 pneumonia: Seen and evaluated by pulmonary. Started on Decadron day #4 and Remdesivir day #3. Vitamin D, vitamin C, zinc, and melatonin. We will continue supportive care. 2. Acute hypoxic respiratory failure currently on 2 L of oxygen via nasal cannula. 3. Sepsis without septic shock. Secondary to #1. Lactic acid is normal. Patient received IV fluid hydration. 4. Chronic atrial fibrillation, heart rate well controlled. not on anticoagulation secondary to history of intracranial bleed. 5. Advanced dementia with some confusion on presentation may represent acute metabolic encephalopathy. Now resolved. Mental status back to baseline. 6. Chronic medical problems coronary artery disease with history of CABG,. 7. DVT prophylaxis with subcu Lovenox Patient will remain in the hospital until course of Rem is complete
--- NOTE | 2020-07-09 17:21 | P.PN ---
Subjective Progress Note Date: 07/09/20 Principal diagnosis: CoVID 19 pneumonia 75-year-old male patient, hospitalized for COVID 19-related pneumonia. The patient was diagnosed having covid went urgent care outside the hospital few days ago and the diagnosis was confirmed again yesterday in the hospital. The patient was apparently running a low-grade fever for around 2 days. He is a very poor historian. He does have underlying dementia. He has underlying intracranial cerebral hemorrhage history along with history of atrial fibrillation. In terms of his chest x-ray, the patient's chest x-ray revealed pulmonary infiltrates in the lower lobes more so in the right lower lobe. He has post thoracotomy changes on his chest x-ray. His blood work shows a CRP of 152, LDH of 468, normal renal function, normal liver function tests, the white cell count today is at 3.4 with a hemoglobin of 14.4. He did have some lymphopenia. This is consistent with Covid manipulated pneumonia. His d-dimer is at 0.9. Currently he is on 2 L of oxygen by nasal cannula. He is also on Decadron 6 mg and Lovenox 40 mg subcu. He did have a low-grade fever yesterday of 100.3. He is currently living with his son. No home oxygen. His evaluation of 07/08/2020, the patient is doing well. He is currently on oxygen at 2 L and his current pulse ox is 98%. He was hospitalized yesterday and he was having some fever and shortness of breath. He d-dimer was 0.9. His inflammatory markers were mildly elevated. He was started on Decadron. He was started on REM and he is on day #2. On today's evaluation, his blood work shows no major abnormalities in terms of his CBC. He does have some lymphopenia. His ferritin level is 918, his LDH level is down to 236 and his CRP level is at 5.3. No other significant events otherwise for now. His resting comfortably in bed. He is on Lovenox The patient is seen today 07/09/2020 in follow-up on the regular medical floor. He is awake and alert in no acute distress. He is on 4 L/m per nasal cannula. Afebrile. Day #3 of Remdesivir. Recent inflammatory markers had been trending down. Is continued on Decadron, Lovenox, vitamin supplements Objective - Vital Signs Vital signs: Vital Signs Temp 97.9 F 07/09/20 09:48 Pulse 76 07/09/20 09:48 Resp 20 07/09/20 09:48 BP 129/76 07/09/20 09:48 Pulse Ox 91 L 07/09/20 09:48 Intake & Output 07/08/20 07/09/20 07/09/20 18:59 06:59 18:59 Other: Voiding Method Toilet Toilet Diaper Diaper Incontinent Incontinent # Voids 2 - Exam A 75-year-old gentleman, appears well nourished and normally developed. Vital signs as documented. Head exam is unremarkable. No scleral icterus or corneal arcus noted. Neck is without jugular venous distension, thyromegaly, or carotid bruits. Carotid upstrokes are brisk bilaterally. Lungs are clear to auscultation and percussion. Crackles are present in the right lung base and the patient has post thoracotomy scar over the anterior chest area. Cardiac exam reveals the PMI to be normally sized and situated. Rhythm is regular. First and second heart sounds normal. No murmurs, rubs or gallops. Abdominal exam reveals normal bowel sounds, no masses, no organomegaly and no aortic enlargement. Extremities are nonedematous and both femoral and pedal pulses are normal.Examination of the skin revealed no evidence of significant rashes, suspicious appearing nevi or other concerning lesions. Neurologically the patient does not have any focal neurological deficits. Nevertheless, the patient has impairment of the cognitive functions. Poor memory. Poor concentration. For information delivery by the patient. - Labs CBC & Chem 7: 07/08/20 06:22 07/08/20 06:22 Labs: Abnormal Lab Results - Last 24 Hours (Table) 07/08/20 Range/Units 07:10 Procalcitonin 0.32 H (0.02-0.09) ng/mL Assessment and Plan Assessment: 1 acute Covid 19 related pneumonia. The patient has limited infiltration of the lung bases more so on the right. The patient is currently hypoxic at 2 L about 2 by nasal cannula and the patient was started on Decadron/ Remdesivir 2 advanced dementia 3 coronary artery disease and a previous bypass surgery 4 chronic A. fib fibrillation on no anticoagulants 5 history of CVA/intracranial hemorrhage 6 hypertension Plan The patient was seen and evaluated by Dr. Trevor Dowling #3 of Remdesivir Continue Lovenox, Decadron, vitamin supplement Titrate the FiO2 as tolerated We will continue to follow I, the cosigning physician, performed a history & physical examination of the patient. Lungs sounds are clear. Maintaining good O2 saturations in the 90s on 4 L/m per nasal cannula I discussed the assessment and plan of care with my nurse practitioner, Liz Inman. I attest to the above note as dictated by her.
[2020-07-09] MEDS: QUEtiapine 100 MG TAB PO SCH (20:49)
[2020-07-09] MEDS: MELATONIN 5 MG TABLET PO SCH (20:49)
[2020-07-10] MEDS: dexAMETHasone 2 MG TAB PO SCH (08:57)
[2020-07-10] MEDS: DILTIAZEM CD 240 MG CAP.ER.24H PO SCH (08:57)
[2020-07-10] MEDS: ENOXAPARIN 40 MG/0.4 ML SYRINGE SQ SCH (08:57)
[2020-07-10] MEDS: CHOLECALCIFEROL 25 MCG (1000 IU) TABLET PO SCH (08:58)
[2020-07-10] MEDS: ASCORBIC ACID 500 MG TAB PO SCH (08:58)
[2020-07-10] MEDS: ZINC SULFATE 220 MG CAP PO SCH (08:58)
[2020-07-10] MEDS: guaiFENesin 600 MG TABLET.ER PO SCH ×2 (08:58→19:50)
[2020-07-10] MEDS: ALBUTEROL HFA INHALER INHALATION SCH ×4 (09:22→20:56)
[2020-07-10 10:04] LABS: Anion Gap 8.9 mmol/L (4.00-12.00); C Reactive Protein 5.5 mg/dL (0.0-0.8); Calcium 8.8 mg/dL (8.7-10.3); Carbon Dioxide 29.1 mmol/L (21.6-31.8); Non-African American GFR(CKD) 73.3 (60.0-200.0)
--- NOTE | 2020-07-10 10:38 | XR ---
EXAMINATION TYPE: XR chest 1V portable DATE OF EXAM: 07/10/2020 Comparison: 07/07/2020 Clinical History: 75-year-old male CoVID pneumonia Findings: Median sternotomy wires are present. Rightward patient rotation alters the normal cardiomediastinal c ontours. Heart upper limits of normal in size. Mild hyperinflation. Interstitial prominence is simila r. Increasing airspace disease in the periphery of the right mid and lower lung and at the right base . No pleural effusion. Impression: Suspect underlying COPD. Worsening airspace disease in the periphery of the right midlung and right b ase can be seen with COVID pneumonia.
[2020-07-10 11:37] LABS: Basophils # (A) 0.03 X 10*3/uL (0.00-0.10); Basophils % (A) 0.3 %; Eosinophils # (A) 0.05 X 10*3/uL (0.04-0.35); Eosinophils % (A) 0.5 %; Lymphocytes % (A) 8.4 %; MCH 27.3 pg (27.0-32.0); MCHC 30.4 g/dL (32.0-37.0); MCV 89.8 fL (80.0-97.0); Mean Platelet Volume 11.4 fL (9.5-12.2); Monocytes # (A) 0.75 X 10*3/uL (0.20-1.00); Monocytes % (A) 7.8 %; Neutrophils # (A) 7.89 X 10*3/uL (1.80-7.70); Neutrophils % (A) 82.6 %; Platelet Count 267 X 10*3/uL (140-440); RBC 5.12 X 10*6/uL (4.40-5.60); RDW 13.8 % (11.5-14.5); WBC 9.56 X 10*3/uL (4.50-10.00)
[2020-07-10] MEDS: REMDESIVIR 100 MG in SODIUM CHLORIDE 0.9% 250 ML IVPB SCH (13:19)
--- NOTE | 2020-07-10 13:50 | P.PN ---
Subjective Progress Note Date: 07/10/20 Patient is doing fairly well today. He denies any specific concerns or complaints. He is pleasantly confused Objective - Vital Signs Vital signs: Vital Signs Temp 97.7 F 07/10/20 09:13 Pulse 104 H 07/10/20 09:13 Resp 18 07/10/20 09:13 BP 148/99 07/10/20 09:13 Pulse Ox 94 L 07/10/20 09:13 Intake & Output 07/09/20 07/10/20 07/10/20 18:59 06:59 18:59 Intake Total 600 Balance 600 Intake: Oral 600 Other: Voiding Method Toilet Diaper Incontinent # Voids 2 2 - Exam General: The patient is awake and alert, in no distress Eye: there is normal conjunctiva bilaterally. Neck: The neck is supple, there is no JVD. Cardiovascular: Normal S1-S2, no S3-S4, no murmurs. Respiratory: Lungs clear to auscultation bilaterally Gastrointestinal: Abdomen is soft, nontender Musculoskeletal: There is no pedal edema. Neurological:. Speech is normal. Skin: Skin is warm and dry - Labs CBC & Chem 7: 07/10/20 06:08 07/10/20 06:08 Labs: Abnormal Lab Results - Last 24 Hours (Table) 07/10/20 07/10/20 07/10/20 Range/Units 06:08 06:08 06:08 MCHC 30.4 L (32.0-37.0) g/dL Absolute Nucleated RBC 0.02 H (0.00-0.00) X 10*3/uL Neutrophils # 7.89 H (1.80-7.70) X 10*3/uL Lymphocytes # 0.80 L (0.90-5.00) X 10*3/uL NRBC/100 WBC Diff 0.2 H (0.0-0.0) /100 WBCS D-Dimer 1.35 H (<0.60) mg/L FEU BUN 28.0 H (9.0-27.0) mg/dL BUN/Creatinine Ratio 28.00 H (12.00-20.00) Ratio Glucose 120 H (70-110) mg/dL Lactate Dehydrogenase 272 H (120-246) U/L C-Reactive Protein 5.5 H (0.0-0.8) mg/dL Assessment and Plan Assessment: This is a 75-year-old male with past medical history noted below significant for advanced dementia who presented to the emergency room with hypoxia. Patient was evaluated in the ER and admitted to the hospital for further management of his medical problems noted below. 1. COVD-19 pneumonia: Seen and evaluated by pulmonary. Started on Decadron day #5 and Remdesivir day #4. Vitamin D, vitamin C, zinc, and melatonin. We will continue supportive care. 2. Acute hypoxic respiratory failure currently on 2 L of oxygen via nasal cannula. 3. Sepsis without septic shock. Secondary to #1. Lactic acid is normal. Patient received IV fluid hydration. 4. Chronic atrial fibrillation, heart rate well controlled. not on anticoagulation secondary to history of intracranial bleed. 5. Advanced dementia with some confusion on presentation may represent acute metabolic encephalopathy. Now resolved. Mental status back to baseline. 6. Chronic medical problems coronary artery disease with history of CABG,. 7. DVT prophylaxis with subcu Lovenox Patient will remain in the hospital until course of Rem is complete Plan to discharge home with his daughter who is his primary caregiver
--- NOTE | 2020-07-10 18:05 | P.PN ---
Subjective Progress Note Date: 07/10/20 Principal diagnosis: CoVID 19 pneumonia 75-year-old male patient, hospitalized for COVID 19-related pneumonia. The patient was diagnosed having covid went urgent care outside the hospital few days ago and the diagnosis was confirmed again yesterday in the hospital. The patient was apparently running a low-grade fever for around 2 days. He is a very poor historian. He does have underlying dementia. He has underlying intracranial cerebral hemorrhage history along with history of atrial fibrillation. In terms of his chest x-ray, the patient's chest x-ray revealed pulmonary infiltrates in the lower lobes more so in the right lower lobe. He has post thoracotomy changes on his chest x-ray. His blood work shows a CRP of 152, LDH of 468, normal renal function, normal liver function tests, the white cell count today is at 3.4 with a hemoglobin of 14.4. He did have some lymphopenia. This is consistent with Covid manipulated pneumonia. His d-dimer is at 0.9. Currently he is on 2 L of oxygen by nasal cannula. He is also on Decadron 6 mg and Lovenox 40 mg subcu. He did have a low-grade fever yesterday of 100.3. He is currently living with his son. No home oxygen. His evaluation of 07/08/2020, the patient is doing well. He is currently on oxygen at 2 L and his current pulse ox is 98%. He was hospitalized yesterday and he was having some fever and shortness of breath. He d-dimer was 0.9. His inflammatory markers were mildly elevated. He was started on Decadron. He was started on REM and he is on day #2. On today's evaluation, his blood work shows no major abnormalities in terms of his CBC. He does have some lymphopenia. His ferritin level is 918, his LDH level is down to 236 and his CRP level is at 5.3. No other significant events otherwise for now. His resting comfortably in bed. He is on Lovenox The patient is seen today 07/09/2020 in follow-up on the regular medical floor. He is awake and alert in no acute distress. He is on 4 L/m per nasal cannula. Afebrile. Day #3 of Remdesivir. Recent inflammatory markers had been trending down. Is continued on Decadron, Lovenox, vitamin supplements The patient is seen today 07/10/2020 in follow-up on the regular medical floor. He is awake and alert in no acute distress. Up ambulating in his room. He is currently on 3 L nasal cannula maintaining O2 saturations in the 90s. Chest x- ray continues to show bilateral airspace disease more so on the right midlung and right base. Underlying COPD. This is day #4 of Remdesivir. Remains on Lovenox, Decadron, vitamin supplements. White count 9.5. Hemoglobin 14.0. Lymphocytes 0.8. D-dimer 1.35. Sodium 143. Potassium 4.0. Creatinine 1.0. LDH 272. C-reactive protein 5.5. Objective - Vital Signs Vital signs: Vital Signs Temp 98 F 07/10/20 13:48 Pulse 71 07/10/20 13:48 Resp 18 07/10/20 13:48 BP 148/107 07/10/20 13:48 Pulse Ox 91 L 07/10/20 13:48 Intake & Output 07/09/20 07/10/20 07/10/20 18:59 06:59 18:59 Intake Total 600 600 Balance 600 600 Intake: Intake, IV Titration 600 Amount Remdesivir 100 mg In 600 Sodium Chloride 0.9% 250 ml @ 250 mls/hr IVPB Q24H [facility] Rx#:[id number] Oral 600 Other: Voiding Method Toilet Diaper Incontinent # Voids 2 2 2 - Exam A 75-year-old gentleman, appears well nourished and normally developed. 3 L nasal cannula. Vital signs as documented. Head exam is unremarkable. No scleral icterus or corneal arcus noted. Neck is without jugular venous distension, thyromegaly, or carotid bruits. Carotid upstrokes are brisk bilaterally. Lungs with crackles are present in the right lung base and the patient has post thoracotomy scar over the anterior chest area. Cardiac exam reveals the PMI to be normally sized and situated. Rhythm is regular. First and second heart sounds normal. No murmurs, rubs or gallops. Abdominal exam reveals normal bowel sounds, no masses, no organomegaly and no aortic enlargement. Extremities are nonedematous and both femoral and pedal pulses are normal.Examination of the skin revealed no evidence of significant rashes, suspicious appearing nevi or other concerning lesions. Neurologically the patient does not have any focal neurological deficits. Nevertheless, the patient has impairment of the cognitive functions. Poor memory. Poor concentration. For information delivery by the patient. - Labs CBC & Chem 7: 07/10/20 06:08 07/10/20 06:08 Labs: Abnormal Lab Results - Last 24 Hours (Table) 07/10/20 07/10/20 07/10/20 Range/Units 06:08 06:08 06:08 MCHC 30.4 L (32.0-37.0) g/dL Absolute Nucleated RBC 0.02 H (0.00-0.00) X 10*3/uL Neutrophils # 7.89 H (1.80-7.70) X 10*3/uL Lymphocytes # 0.80 L (0.90-5.00) X 10*3/uL NRBC/100 WBC Diff 0.2 H (0.0-0.0) /100 WBCS D-Dimer 1.35 H (<0.60) mg/L FEU BUN 28.0 H (9.0-27.0) mg/dL BUN/Creatinine Ratio 28.00 H (12.00-20.00) Ratio Glucose 120 H (70-110) mg/dL Lactate Dehydrogenase 272 H (120-246) U/L C-Reactive Protein 5.5 H (0.0-0.8) mg/dL Assessment and Plan Assessment: 1 acute Covid 19 related pneumonia. The patient has limited infiltration of the lung bases more so on the right. The patient is currently on 2 by nasal cannula 2 advanced dementia 3 coronary artery disease and a previous bypass surgery 4 chronic A. fib fibrillation on no anticoagulants 5 history of CVA/intracranial hemorrhage 6 hypertension Plan The patient was seen and evaluated by Dr. Murray Chest x-ray and labs reviewed Day #4 of Remdesivir Continue Lovenox, Decadron, vitamin supplement Titrate the FiO2 as tolerated We will continue to follow I, the cosigning physician, performed a history & physical examination of the patient. Lungs sounds with crackles in bilateral posterior bases right greater than left. Maintaining good O2 saturations in the 90s on 3 L/m per nasal canntanya jasso I discussed the assessment and plan of care with my nurse practitioner, Liz Inman. I attest to the above note as dictated by her.
[2020-07-10] MEDS: QUEtiapine 100 MG TAB PO SCH (19:51)
[2020-07-10] MEDS: MELATONIN 5 MG TABLET PO SCH (19:51)
[2020-07-11] MEDS: ALBUTEROL HFA INHALER INHALATION SCH ×3 (07:22→15:11)
[2020-07-11] MEDS: guaiFENesin 600 MG TABLET.ER PO SCH (08:47)
[2020-07-11] MEDS: ENOXAPARIN 40 MG/0.4 ML SYRINGE SQ SCH ×2 (08:47→10:05)
[2020-07-11] MEDS: dexAMETHasone 2 MG TAB PO SCH ×2 (08:47→10:05)
[2020-07-11] MEDS: CHOLECALCIFEROL 25 MCG (1000 IU) TABLET PO SCH ×2 (08:47→10:05)
[2020-07-11] MEDS: ASCORBIC ACID 500 MG TAB PO SCH ×2 (08:47→10:05)
[2020-07-11] MEDS: ZINC SULFATE 220 MG CAP PO SCH ×2 (08:47→10:06)
[2020-07-11] MEDS: DILTIAZEM CD 240 MG CAP.ER.24H PO SCH ×2 (08:50→10:05)
[2020-07-11 09:17] LABS: Basophils # (A) 0.02 X 10*3/uL (0.00-0.10); Basophils % (A) 0.2 %; Eosinophils # (A) 0.05 X 10*3/uL (0.04-0.35); Eosinophils % (A) 0.6 %; HCT 42.8 % (39.6-50.0); HGB 13.3 g/dL (13.0-17.0); Lymphocytes # (A) 0.96 X 10*3/uL (0.90-5.00); Lymphocytes % (A) 11.6 %; MCH 27.5 pg (27.0-32.0); MCHC 31.1 g/dL (32.0-37.0); MCV 88.4 fL (80.0-97.0); Mean Platelet Volume 11.7 fL (9.5-12.2); Monocytes % (A) 9.7 %; Neutrophils % (A) 76.4 %; Platelet Count 274 X 10*3/uL (140-440); RBC 4.84 X 10*6/uL (4.40-5.60); RDW 13.7 % (11.5-14.5); WBC 8.25 X 10*3/uL (4.50-10.00)
[2020-07-11 10:46] VITALS: RESP 14
[2020-07-11] MEDS: REMDESIVIR 100 MG in SODIUM CHLORIDE 0.9% 250 ML IVPB SCH (12:44)
[2020-07-11 14:57] VITALS: BP 129/73; PULSE 97; TEMP 99.3
--- NOTE | 2020-07-11 16:11 | P.DS ---
Providers Date of admission: 07/06/20 17:37 Expected date of discharge: 07/11/20 Attending physician: Antoine Watts MD Consults: 07/06/20 17:37 Consult Physician Routine Consulting Provider: Romelia Sam Consult Reason/Comments: COVID+ Hypoxia Do you want consulting provider notified?: Yes Primary care physician: Roc Brownlee Assessment: Discharge Diagnosis: COVID 19 pneumonitis Acute hypoxic respiratory failure Sepsis related to above without shock, resolved Dementia Coronary artery disease with history of coronary artery bypass grafting Chronic atrial fibrillation not on anticoagulants History of intracranial hemorrhage Hypertension Hospital Course: Patient is a 75-year-old male for history of dementia, prior intercerebral hemorrhage, A. fib, and hypertension who presented to the emergency room from urgent care secondary to hypoxia and Covid pneumonia. Laboratory analysis showed that he was Covid PCR positive with a CRP of 152. CT brain was negative for any acute changes. Was hypoxic with an O2 sat of 87% on 2 L nasal cannula. He was started on dexamethasone, vitamins, and pulmonary was consulted. He was started on remdesivir and completed a 5 day course. His oxygen levels remained stable and had slightly improved. He was satting 95% on 3 L nasal cannula. White blood cell count remained stable. Pro-calcitonin was negative. CRP improved from 15-5.5, LDH improved from 428-272. He continued to do well but overall felt fatigued. He was determined stable for discharge home. I did call and discuss his discharge with his son Taran. We discussed him using [id number] aspirin 81 mg for the next one month. He will be discharged home to complete a course of dexamethasone he will continue on vitamin C, zinc, and vitamin D. He was also given a prescription for albuterol inhaler as well as Tessalon Perles to help him sleep better at night secondary to his continued cough. All questions were answered. Family is amenable to proceeding with discharge. Patient seen and examined at bedside. He denies any significant shortness of breath, nausea, or vomiting. He is still feeling fatigued. He does not want to be bothered. Vital signs reviewed and stable. General: non toxic, no distress, appears at stated age Derm: warm, dry Head: atraumatic, normocephalic, symmetric Eyes: EOMI, no lid lag, anicteric sclera Mouth: no lip lesion, mucus membranes moist Cardiovascular: S1S2 reg, no murmur, positive posterior tibial pulse bilateral, Lungs: Course bs bilateral, no rhonchi, no rales , no accessory muscle use Ext: no gross muscle atrophy, no edema, no contractures Neuro: CN II-XI grossly intact, no focal neuro deficits Psych: alert, does not want to take his pills, wants to be left alone A total of 37 minutes of time were spent preparing this complex discharge summary . Patient Condition at Discharge: Stable Plan - Discharge Summary Discharge Rx Participant: No New Discharge Prescriptions: New dexAMETHasone [Hexadrol] 6 mg PO DAILY #15 tab guaiFENesin [Mucinex] 600 mg PO Q12HR #30 tablet.er Albuterol Inhaler [Ventolin Hfa Inhaler] 2 puff INHALATION RT-QID #1 inhaler Benzonatate [Tessalon Perles] 100 mg PO TID PRN #30 capsule PRN Reason: Cough Zinc Sulfate [Orazinc] 220 mg PO DAILY #15 cap Ascorbic Acid [Vitamin C] 1,000 mg PO DAILY #30 tab Cholecalciferol [Vitamin D3 (25 Mcg = 1000 Iu)] 50 mcg PO DAILY #60 tablet Pantoprazole Sodium [Protonix] 40 mg PO DAILY #5 tablet.dr Garner QUEtiapine [SEROquel] 100 mg PO HS Diltiazem HCl [Cartia Xt] 240 mg PO DAILY Discharge Medication List Diltiazem HCl [Cartia Xt] 240 mg PO DAILY 07/06/20 [History] QUEtiapine [SEROquel] 100 mg PO HS 07/06/20 [History] Albuterol Inhaler [Ventolin Hfa Inhaler] 2 puff INHALATION RT-QID #1 inhaler 07/11/20 [Rx] Ascorbic Acid [Vitamin C] 1,000 mg PO DAILY #30 tab 07/11/20 [Rx] Benzonatate [Tessalon Perles] 100 mg PO TID PRN #30 capsule 07/11/20 [Rx] Cholecalciferol [Vitamin D3 (25 Mcg = 1000 Iu)] 50 mcg PO DAILY #60 tablet 07/11/20 [Rx] Pantoprazole Sodium [Protonix] 40 mg PO DAILY #5 tablet. 07/11/20 [Rx] Zinc Sulfate [Orazinc] 220 mg PO DAILY #15 cap 07/11/20 [Rx] dexAMETHasone [Hexadrol] 6 mg PO DAILY #15 tab 07/11/20 [Rx] guaiFENesin [Mucinex] 600 mg PO Q12HR #30 tablet.er 07/11/20 [Rx] Follow up Appointment(s)/Referral(s): Loren Murray MD [STAFF PHYSICIAN] - 2 Weeks [facility] [NON-STAFF] - As Needed (oxygen ) Roc Brownlee DO [Primary Care Provider] - 1-2 days [facility], [NON-STAFF] - As Needed Patient Instructions/Handouts: Coronavirus Disease 2019 (COVID-19), Pneumonia (DC) Activity/Diet/Wound Care/Special Instructions: Activity: as tolerated Diet: Regular Special Instructions: Must wear Oxygen 24 hours a day at this time. Discharge Disposition: HOME SELF-CARE
[2020-07-11 19:20] LABS: Anion Gap 7.7 mmol/L (4.00-12.00); C Reactive Protein 10.5 mg/dL (0.0-0.8); Calcium 8.3 mg/dL (8.7-10.3); Carbon Dioxide 29.3 mmol/L (21.6-31.8); Non-African American GFR(CKD) 73.3 (60.0-200.0); Potassium 4.1 mmol/L (3.5-5.5)
== END 2020-07-11 18:52 | disposition home or self-care (01) | DRG 871 ==
LOC: EC 15:51 → 4SSUR 17:37
PROVIDERS: ADMIT Internal Medicine; ATTEND Internal Medicine
PROC: 5A0955A Assistance with Respiratory Ventilation, Greater than 96 Consecutive Hours, High Flow/Velocity Cannula (ICD-10-PCS; 2020-07-06)
PROC: XW033E5 Introduction of Remdesivir Anti-infective into Peripheral Vein, Percutaneous Approach, New Technology Group 5 (ICD-10-PCS; principal; 2020-07-07)
DX: A41.89 Other specified sepsis (principal); U07.1 COVID-19; J12.82 Pneumonia due to coronavirus disease 2019; J96.01 Acute respiratory failure with hypoxia; G93.41 Metabolic encephalopathy; I48.20 Chronic atrial fibrillation, unspecified; J44.0 Chronic obstructive pulmonary disease with (acute) lower respiratory infection; I10 Essential (primary) hypertension; Z95.1 Presence of aortocoronary bypass graft; Z87.891 Personal history of nicotine dependence; F03.90 Unspecified dementia, unspecified severity, without behavioral disturbance, psychotic disturbance, mood disturbance, and anxiety; Z86.73 Personal history of transient ischemic attack (TIA), and cerebral infarction without residual deficits; D72.810 Lymphocytopenia; I25.10 Atherosclerotic heart disease of native coronary artery without angina pectoris; Z79.01 Long term (current) use of anticoagulants
CPT/HCPCS: 36415; 70450; 71045; 80048; 80053; 81001; 82728; 83605; 83615; 83880; 84145; 85025; 85027; 85379; 85610; 85730; 86140; 87635; 93005; 94640; 99285

== ENCOUNTER 2020-11-27 01:39 | Observation (INO) | payer MEDICARE ==
--- NOTE | 2020-11-27 02:16 | ED ---
Chest Pain HPI - General Chief Complaint: Chest Pain Stated Complaint: Chest Pain,Back Pain Time Seen by Provider: 11/27/20 01:55 Source: patient Mode of arrival: ambulatory Limitations: no limitations - History of Present Illness Initial Comments: 75-year-old male with history of A. fib, dementia, CAD presenting to the emergency department with a chief complaint of chest pain fall. Daughter is also present in the room to answer additional questions. She states the patient suffered a fall earlier today where he was in the shower. Patient states she does not remember falling. Daughter states the patient supposedly had no loss of consciousness while suffering a mechanical fall, slip and fall from ground level. Patient is not currently on any blood thinners. She states there was some signs of trauma in the parietal region of the head. Patient reports his pain is mostly located in chest and is reversible palpation. States it is mostly the upper chest but not radiating to the back. There is some radiation to the neck but not to left hand. States he also has some pain going in the upper abdominal region. However, he denies any associated nausea or vomiting. He denies any visual changes, one sided weakness or paresthesias. - Related Data Home Medications Medication Instructions Recorded Confirmed Diltiazem HCl [Cartia Xt] 240 mg PO DAILY 07/06/20 07/07/20 QUEtiapine [SEROquel] 100 mg PO HS 07/06/20 07/07/20 Previous Rx's Medication Instructions Recorded Albuterol Inhaler [Ventolin Hfa 2 puff INHALATION RT-QID #1 inhaler 07/11/20 Inhaler] Ascorbic Acid [Vitamin C] 1,000 mg PO DAILY #30 tab 07/11/20 Benzonatate [Tessalon Perles] 100 mg PO TID PRN #30 capsule 07/11/20 Cholecalciferol [Vitamin D3 (25 50 mcg PO DAILY #60 tablet 07/11/20 Mcg = 1000 Iu)] Pantoprazole Sodium [Protonix] 40 mg PO DAILY #5 tablet.dr 07/11/20 Zinc Sulfate [Orazinc] 220 mg PO DAILY #15 cap 07/11/20 dexAMETHasone ORAL [Hexadrol] 6 mg PO DAILY #15 tab 07/11/20 guaiFENesin [Mucinex] 600 mg PO Q12HR #30 tablet.er 07/11/20 Allergies Allergy/AdvReac Type Severity Reaction Status Date / Time tetracycline Allergy Unknown Verified 07/06/20 17:17 zolpidem [From Ambien] Allergy Hallucinati Verified 11/27/20 01:44 ons Review of Systems ROS Statement: Those systems with pertinent positive or pertinent negative responses have been documented in the HPI. ROS Other: All systems not noted in ROS Statement are negative. Past Medical History Past Medical History: Coronary Artery Disease (CAD), Hypertension Additional Past Medical History / Comment(s): brain anuerysm with a previous intracranial hemorrhage, chronic atrial fibrillation, dementia, CAD and the patient has undergone a previous bypass surgery, hypertension, former smoker History of Any Multi-Drug Resistant Organisms: None Reported Past Surgical History: Coronary Bypass/CABG Past Psychological History: No Psychological Hx Reported Smoking Status: Former smoker Past Alcohol Use History: None Reported Past Drug Use History: None Reported General Exam Limitations: no limitations General appearance: alert, in no apparent distress Head exam: Present: atraumatic, normocephalic, normal inspection (no obvious signs of trauma to head). Absent: other (negative Lundy sign, raccoon eyes, hemotympanum.) Eye exam: Present: normal appearance, PERRL, EOMI Pupils: Present: normal accommodation ENT exam: Present: normal exam, normal oropharynx, mucous membranes moist, TM's normal bilaterally, normal external ear exam Neck exam: Present: normal inspection, full ROM. Absent: tenderness, lymphadenopathy Respiratory exam: Present: normal lung sounds bilaterally, chest wall tenderness (reproducible chest wall tenderness in the upper thoracic region. There is also some right-sided chest wall tenderness. No signs of ecchymosis.). Absent: respiratory distress, wheezes, rales, rhonchi, stridor, accessory muscle use Cardiovascular Exam: Present: regular rate, normal rhythm, normal heart sounds. Absent: systolic murmur, diastolic murmur GI/Abdominal exam: Present: soft, tenderness (upper abdominal tenderness, diffuse.). Absent: distended, guarding, rebound, rigid Extremities exam: Present: normal inspection, full ROM, normal capillary refill, other (palpable DP and PT bilaterally. Palpable ulnar and radial pulses bilaterally.). Absent: pedal edema, joint swelling, calf tenderness Back exam: Present: normal inspection, full ROM. Absent: tenderness, CVA tenderness (R), CVA tenderness (L), muscle spasm, paraspinal tenderness, vertebral tenderness Neurological exam: Present: alert Psychiatric exam: Present: normal affect, normal mood Skin exam: Present: warm, dry, intact, normal color Course Vital Signs 11/27/20 01:41 Temperature 98.2 F Pulse Rate 68 Respiratory 22 Rate Blood Pressure 165/95 O2 Sat by Pulse 95 Oximetry Chest Pain MDM - MDM 75-year-old male with history of A. fib, dementia, CAD presenting to the emergency department with a chief complaint of chest pain fall. on physical examination, no obvious signs of trauma to the head. He does have reproducible chest and upper abdominal pain. Right-sided chest wall pain but no signs of ecchymosis to the region. I held off the aspirin until CT imaging of the head returned. CT of the head and neck pending. chest, abdomen and pelvis pending. CBC and coags are unremarkable. Patient does have elevated troponin 0.215. However, I do not have an old troponin to trend it. EKG showed A. fib. Patient is not anticoagulated at this time. case was discussed with Dr. Zhu who recommended inpatient admission. at this time, patient care signed off to Disposition Clinical Impression: Fall, Chest pain, Elevated troponin Disposition: ADMITTED IP TO THIS HOSP Condition: Fair Is patient prescribed a controlled substance at d/c from ED?: No Referrals: Roc Brownlee DO [Primary Care Provider] - 1-2 days
[2020-11-27 02:33] LABS: Basophils # (A) 0.1 k/uL (0-0.2); Basophils % (A) 1 %; Eosinophils # (A) 0.2 k/uL (0-0.7); Eosinophils % (A) 2 %; HCT 48.1 % (39.0-53.0); HGB 15.6 gm/dL (13.0-17.5); Lymphocytes # (A) 1.8 k/uL (1.0-4.8); Lymphocytes % (A) 20 %; MCH 28.2 pg (25.0-35.0); MCHC 32.5 g/dL (31.0-37.0); MCV 86.7 fL (80.0-100.0); Monocytes # (A) 0.5 k/uL (0-1.0); Monocytes % (A) 5 %; Neutrophils # (A) 6.4 k/uL (1.3-7.7); Neutrophils % (A) 70 %; Platelet Count 241 k/uL (150-450); RBC 5.55 m/uL (4.30-5.90); RDW 13.8 % (11.5-15.5); WBC 9.2 k/uL (3.8-10.6)
[2020-11-27 02:44] LABS: Partial Thromboplastin Time 25.2 sec (22.0-30.0); Prothrombin Time 10.3 sec (9.0-12.0)
[2020-11-27 02:45] LABS: ALT 29 U/L (4-49); AST 28 U/L (17-59); African American GFR (CKD) >90 (>60 ml/min/1.73 sqM); Alkaline Phosphatase 85 U/L (38-126); Anion Gap 10 mmol/L; Blood Urea Nitrogen 24 mg/dL (9-20); Calcium 9.6 mg/dL (8.4-10.2); Carbon Dioxide 22 mmol/L (22-30); Chloride 109 mmol/L (98-107); Glucose 116 mg/dL (74-99); Magnesium 2.2 mg/dL (1.6-2.3); Non-African American GFR(CKD) 85 (>60 ml/min/1.73 sqM); Potassium 3.9 mmol/L (3.5-5.1); Sodium 141 mmol/L (137-145); Total Bilirubin 0.3 mg/dL (0.2-1.3); Total Protein 6.6 g/dL (6.3-8.2)
[2020-11-27] MEDS ORDERED: NITROGLYCERIN SL TABS 0.4 MG TAB SUBLINGUAL PRN (03:10)
--- NOTE | 2020-11-27 03:31 | CT ---
EXAMINATION TYPE: CT brain caroline wo con DATE OF EXAM: 11/27/2020 COMPARISON: CT brain 07/06/2020 HISTORY: Fall CT DLP: 1289.2 mGycm Automated exposure control for dose reduction was used. Images of the brain and cervical spine without contrast. There is right frontal temporal craniotomy defect. There is patchy hypodensity throughout the periven tricular white matter. There is hypodensity in the ceja-white matter right frontal lobe consistent wi th encephalomalacia. There is no mass effect. There are surgical clips at the anterior sella turcica. There is mild enlargement of the ventricles. There is no midline shift. There is no sign of intracra nial hemorrhage. There is no evidence of posterior fossa mass. Cervical vertebra have normal alignment. There is degenerative disc space narrowing at C4-5 C5-6 and C6-7 with spurring of the endplates. There is multilevel cervical hypertrophic facet arthropathy. The re is no compression fracture. IMPRESSION: Cerebral atrophy and chronic small vessel ischemia. Previous surgery. Frontal lobe encephalomalacia o n the right side. No acute intracranial abnormality. Brain unchanged compared to old exam. Spondylotic changes in the mid and lower cervical spine. No fracture.
--- NOTE | 2020-11-27 03:43 | CT ---
EXAMINATION TYPE: CT ChestAbdPelvis w con DATE OF EXAM: 11/27/2020 COMPARISON: None HISTORY: Fall CT DLP: 930.1 mGycm Automated exposure control for dose reduction was used. CONTRAST: Performed with IV Contrast, patient injected with 20 mL of Isovue 300. Images obtained from the thoracic inlet to the floor the pelvis with IV contrast. A transversely ther e was contrast leakage and suboptimal amount of contrast in the vessels. The lungs are clear of consolidation. There is minimal subsegmental atelectasis in the lower lung fie lds. There is no pleural effusion. Heart is slightly enlarged. There is coronary artery calcification . Thoracic aorta is atheromatous. There is aneurysm of the ascending aorta measures 4.4 cm. There is no pericardial effusion. Liver and spleen are intact. Stomach is intact. There is no pancreatic mass. There are clips from cho lecystectomy. The bile ducts are not dilated. There is no adrenal mass. Kidneys have normal size. There is no hydronephrosis. There are bilateral r enal vascular calcifications. I see no definite urinary tract renal calculus. Abdominal aorta is athe romatous. There is no retroperitoneal adenopathy. Ureters are not dilated. There is no sign of a aletha l mass. Bladder is intact. Prostate is moderately enlarged and measures 6.2 cm. There is posterior prostate c alcification. There is no inguinal hernia. There is no free fluid in the pelvis. There is no mesenteric edema. There is no ascites or free air. There is no sign of a bowel obstructio n. Appendix is somewhat lateral and appears normal. Thoracic and lumbar spine appear intact. There is no compression fracture. There are sternal wires. T he bony pelvis is intact. The hip joints are intact. There is no hip dysplasia. There are Schmorl nod es in the L4 and L2 vertebral bodies. The hip joint spaces are slightly narrowed. Sacroiliac joints a re intact. I see no evidence of a rib fracture. The shoulder joints are intact. IMPRESSION: Is some patchy atelectasis at the lung bases. Cardiomegaly. Atherosclerotic vascular disease. Thoracic aortic aneurysm. No evidence of acute traumatic injury within the abdomen and pelvis. Enlarged prostate.
[2020-11-27 06:40] VITALS: TEMP 97.6
[2020-11-27] MEDS ORDERED: HEPARIN SODIUM,PORCINE/PF 5,000 UNIT/0.5 ML SYRINGE SQ SCH (09:00)
[2020-11-27] MEDS ORDERED: FAMOTIDINE 20 MG/2 ML VIAL IV SCH (09:00)
--- NOTE | 2020-11-27 11:43 | ECHOF ---
Referral Reason:Rule out heart disease MEASUREMENTS -------- HEIGHT: 162.6 cm WEIGHT: 72.6 kg BP: 132/90 RVIDd: 3.1 cm (< 3.3) IVSd: 1.6 cm (0.6 - 1.1) LVIDd: 3.9 cm (3.9 - 5.3) LVPWd: 1.6 cm (0.6 - 1.1) IVSs: 1.7 cm LVIDs: 2.9 cm LVPWs: 1.6 cm LAESV Index (A-L): 35.91 ml/m Ao Diam: 3.3 cm (2.0 - 3.7) AV Cusp: 1.7 cm (1.5 - 2.6) MV EXCURSION: 14.924 mm (> 18.000) MV EF SLOPE: 64 mm/s (70 - 150) EPSS: 1.7 cm AR PHT: 749 ms RAP: 5.00 mmHg RVSP: 27.24 mmHg FINDINGS -------- This was a technically adequate study. The left ventricular size is normal. There is moderate concentric left ventricular hypertrophy. O verall left ventricular systolic function is normal with, an EF between 55 - 60 %. Septal wall sylvester on is delayed and consistent with prior cardiac surgery. The right ventricle is normal in size. LA is moderately dilated 34-39 ml/m2 The right atrial size is normal. Interatrial and interventricular septum intact. The aortic valve is trileaflet and appears structurally normal. There is mild aortic valve sclerosi s. There is mild aortic regurgitation. There is no evidence of aortic stenosis. Moderate mitral regurgitation is present. Mild tricuspid regurgitation present. There is no evidence of pulmonary hypertension. The right v entricular systolic pressure, as measured by Doppler, is 27.24mmHg. There is no pulmonic regurgitation present. The aortic root size is normal. IVC Not well visulized. There is no pericardial effusion. CONCLUSIONS -------- 1. The left ventricular size is normal. 2. There is moderate concentric left ventricular hypertrophy. 3. Overall left ventricular systolic function is normal with, an EF between 55 - 60 %. 4. LA is moderately dilated 34-39 ml/m2 5. There is mild aortic valve sclerosis. 6. There is mild aortic regurgitation. 7. Moderate mitral regurgitation is present. 8. Mild tricuspid regurgitation present. POINTER HELPER: Morelia Reveles RDCS
--- NOTE | 2020-11-27 12:23 | P.CRDCN ---
History of Present Illness History of present illness: HISTORY OF PRESENTING ILLNESS This is a pleasant 75-year-old male past medical history significant for dementia, chronic persistent atrial fibrillation not on mcfp anticoagul ation, hypertension, coronary artery disease status post bypass grafting, brain aneurysm with history of intracranial hemorrhage and former nicotine dependence. He follows in the office with a thread pulling machine attendant at [facility]. We have been asked to see in consultation for chest pain, elevated troponin. The patient is seen and examined standing up in his room pacing. He is very pleasantly confused. He does not recall the situations surrounding his admission. According to ER documentation the patient fell while in the shower. When prompted regarding the fall he does state he remembers feeling dizzy. Otherwise no symptoms of chest pain or shortness of breath or palpitations. He is not trip ndable to leaving a heart monitor on. EKG on arrival revealed atrial fibrillation with heart rate of [address] abnormalities noted in the lateral leads. CT of the chest, abdomen and pelvis reveals patchy atelectasis at the lung bases, atherosclerotic vascular disease, thoracic aortic aneurysm and enlarged prostate. Laboratory data reviewed, CBC unremarkable, sodium 141, potassium 3.9, creatinine 0.86, magnesium 2.2, troponin 0.214, 0.228, 0.241, TSH 7.32. Current daily cardiac medications include diltiazem 240 mg daily. Echocardiogram obtained reveals preserved LV systolic function with ejection fraction 55-60%, moderately dilated left atrium, mild aortic regurgitation, moderate mitral regurgitation and mild tricuspid regurgitation. REVIEW OF SYSTEMS At the time of my exam: CONSTITUTIONAL: Denies fever or chills. CARDIOVASCULAR: Denies chest pain, shortness of breath, orthopnea, PND or palpitations. RESPIRATORY: Denies cough. GASTROINTESTINAL: Denies abdominal pain, diarrhea, constipation, nausea or vomiting. MUSCULOSKELETAL: Denies myalgias. NEUROLOGIC: Denies numbness, tingling, headache or weakness. ENDOCRINE: Denies fatigue, weight change, polydipsia or polyurina. GENITOURINARY: Denies burning, hematuria or urgency with micturation. HEMATOLOGIC: Denies history of anemia or bleeding. PHYSICAL EXAMINATION Blood pressure 152/109 heart rate 64 afebrile and maintaining oxygen saturation on room air. CONSTITUTIONAL: No apparent distress. HEENT: Head is normocephalic. Pupils are equal, round. Sclerae anicteric. Mucous membranes of the mouth are moist. No JVD. No carotid bruit. CHEST EXAMINATION: Lungs are clear to auscultation. No chest wall tenderness is noted on palpation or with deep breathing. HEART EXAMINATION: Irregular rate and rhythm. S1, S2 heard. Systolic ejection murmur at the base, no gallops or rub. ABDOMEN: Soft, nontender. EXTREMITIES: 2+ peripheral pulses, no lower extremity edema and no calf tenderness. NEUROLOGIC EXAMINATION: Patient is awake, alert and oriented x3. ASSESSMENT Chronic persistent atrial fibrillation not on mcfp anticoagulation secondary to history of intracranial hemorrhage Elevated troponin of unclear significance Fall, no loss of consciousness according to ER documentation History of dementia Coronary artery disease status post bypass grafting History of brain aneurysm with intracranial hemorrhage Hypertension Former nicotine dependence PLAN Troponin elevation is flat and of unclear significance with no significant rise and fall pattern. Could be related to muscular skeletal injury. Check CPK. No evidence of wall motion abnormalities noted on echocardiogram. The patient is asymptomatic from a cardiac perspective. Given his baseline mental capacity we recommend maximizing his medical approach at this time. Initiate aspirin 81 mg daily and Lipitor 40 mg daily. Increase activity and ambulation. Follow-up with his primary thread pulling machine attendant upon discharge. Thank you kindly for this consultation. Nurse Practitioner note has been reviewed, I agree with a documented findings and plan of care. Patient was seen and examined. Past Medical History Past Medical History: Coronary Artery Disease (CAD), Hypertension Additional Past Medical History / Comment(s): brain anuerysm with a previous intracranial hemorrhage, chronic atrial fibrillation, dementia, CAD and the patient has undergone a previous bypass surgery, hypertension, former smoker History of Any Multi-Drug Resistant Organisms: None Reported Past Surgical History: Coronary Bypass/CABG Past Psychological History: No Psychological Hx Reported Smoking Status: Former smoker Past Alcohol Use History: None Reported Past Drug Use History: None Reported Medications and Allergies Home Medications Medication Instructions Recorded Confirmed Type Diltiazem HCl [Cartia Xt] 240 mg PO DAILY 07/06/20 11/27/20 History QUEtiapine [SEROquel] 100 mg PO HS 07/06/20 11/27/20 History Allergies Allergy/AdvReac Type Severity Reaction Status Date / Time tetracycline Allergy Unknown Verified 11/27/20 09:31 zolpidem [From Ambien] Allergy Hallucinati Verified 11/27/20 09:31 ons Physical Exam Vitals: Vital Signs Temp Pulse Resp BP Pulse Ox 11/27/20 09:00 64 18 152/109 97 11/27/20 06:39 97.6 F 65 18 132/90 96 11/27/20 01:41 98.2 F 68 22 165/95 95 Intake and Output 11/26/20 11/27/20 11/27/20 22:59 06:59 14:59 Other: Weight 72.575 kg Results 11/27/20 02:11 11/27/20 02:11 Cardiac Enzymes 11/27/20 11/27/20 11/27/20 Range/Units 02:11 02:11 05:41 AST 28 (17-59) U/L Troponin I 0.214 H* 0.228 H* (0.000-0.034) ng/mL 11/27/20 Range/Units 09:23 AST (17-59) U/L Troponin I 0.241 H* (0.000-0.034) ng/mL Coagulation 11/27/20 Range/Units 02:11 PT 10.3 (9.0-12.0) sec APTT 25.2 (22.0-30.0) sec CBC 11/27/20 Range/Units 02:11 WBC 9.2 (3.8-10.6) k/uL RBC 5.55 (4.30-5.90) m/uL Hgb 15.6 (13.0-17.5) gm/dL Hct 48.1 (39.0-53.0) % Plt Count 241 (150-450) k/uL Comprehensive Metabolic Panel 11/27/20 Range/Units 02:11 Sodium 141 (137-145) mmol/L Potassium 3.9 (3.5-5.1) mmol/L Chloride 109 H (98-107) mmol/L Carbon Dioxide 22 (22-30) mmol/L BUN 24 H (9-20) mg/dL Creatinine 0.86 (0.66-1.25) mg/dL Glucose 116 H (74-99) mg/dL Calcium 9.6 (8.4-10.2) mg/dL AST 28 (17-59) U/L ALT 29 (4-49) U/L Alkaline Phosphatase 85 (38-126) U/L Total Protein 6.6 (6.3-8.2) g/dL Albumin 4.0 (3.5-5.0) g/dL Current Medications Generic Name Dose Route Start Last Admin Trade Name Freq PRN Reason Stop Dose Admin Aspirin 325 mg 11/28/20 09:00 Aspirin 325 Mg Tab PO DAILY [facility] Famotidine 20 mg 11/27/20 09:00 Famotidine 20 Mg/2 Ml Vial IV Q12HR [facility] Heparin Sodium (Porcine) 5,000 unit 11/27/20 09:00 Heparin Sodium,Porcine/Pf 5,000 Unit/0.5 Ml Syringe SQ Q12HR [facility] Nitroglycerin 0.4 mg 11/27/20 03:10 Nitroglycerin Sl Tabs 0.4 Mg Tab SUBLINGUAL Q5M PRN Chest Pain Intake and Output 11/26/20 11/27/20 11/27/20 22:59 06:59 14:59 Other: Weight 72.575 kg 11/27/20 02:11 11/27/20 02:11
[2020-11-27 13:11] LABS: T4, Free (Free Thyroxine) 0.94 ng/dL (0.78-2.19)
--- NOTE | 2020-11-27 14:39 | EEG ---
ELECTROENCEPHALOGRAM REPORT DATE OF SERVICE: 11/27/2020. CLINICAL HISTORY: This is a 75-year-old gentleman with a history of brain aneurysm and bleed s/p clip with bilateral frontal encephalomalacia (right more than the left) who has an episode of confusion. This video EEG is obtained to evaluate for seizure and epileptiform activity. RELEVANT MEDICATION: The patient is not on any antiepileptic drugs. EEG TYPE: A routine 21 channel EEG is performed with video using the 10/20 electrode placement system. DESCRIPTION: Wakefulness is only obtained. During wakefulness, there is a posterior dominant rhythm of low to moderate voltage of 8.5-9 hertz activity. There is no sleep architecture seen. There is moderate amount of nonrhythmic 2-3 delta slowing over the right frontal central temporal derivatives. There is a higher amplitude activity on the right frontal central temporal derivatives consistent with breach rhythm. Interictal and ictal is none. Photic stimulation and hyperventilation are not performed. CLINICAL INTERPRETATION: This is an abnormal routine EEG. The focal slowing is suggestive of presence of focal cerebral dysfunction in the involved region, as stated above. The breach rhythm is consistent with the patient's history of skull defect. Otherwise, the background is normal and there is no epileptiform discharges or seizure on the EEG. Clinical correlation is recommended. MMODL / IJN: [id number] / [email or web address]
--- NOTE | 2020-11-27 14:54 | P.CNNES ---
History of Present Illness Consult date: 11/27/20 Requesting physician: Minesh E Sheet Reason for Consult: confused, fell and mild back pain History of Present Illness: This is a 75-year-old gentleman with medical history of brain aneurysm with history of intracranial hemorrhage X2 status post surgical correction (2006), dementia, chronic persistent atrial fibrillation not on any anticoagulation, coronary artery disease status post bypass graft, and former and nicotine dependence who presented to the emergency department because of chest pain and fall. Neurology is consulted for confusion, fall and back pain. Some of the history is obtained from patient's daughter (Lalita) via phone. The daughter stated that she showered him yesterday and he fell because slippery but did not lose consciousness. He complained of mild headache but denies any nausea, vomiting or any focal weakness. She stated that 1am he complained of chest pain. Then later he said it was his back but in reality his daughter felt it was his chest and not his back. He denied of any nausea vomiting, fever according to the daughter. The daughter stated that the ED complained of only chest pain and not lower back pain. The daughter denied the patient has any new confusion. The patient stated he feels better today compared to two days ago where he was feeling dizzy and had fall. He also complains of some upper abdominal pain but denies any nausea or vomiting. Denies any vision change or focal weakness or any numbness or tingling. The daughter that the patient has history of dementia for last 2 years and he is oriented to himself sometimes place but not the time. He is able to have the normal conversation if the conversation started. He's able to feed himself and bathe himself. He has a baseline left hand weakness which is old. Per the daughter she stated that he had a brain aneurysm with a 2 hemorrhage in the frontal region and she said it was the right and he had a surgical procedure she's not sure if he had coil or clip but from the CT is seems possible was a clip. She said that she she was told that the patient's history of aneurysm leading to the bleed it was because of the hypertension not being controlled. He had that the [facility] in 2006. He initially followed up with a neurologist after all this but he has not followed up in the long time. He does not have any history of seizure and he is not on any antiepileptic drugs. His home Medication consist of Cardizem 250 mg daily, Seroquel 100 mg daily at bedtime. Some of the workup in the hospital consisted of: Initial vital signs was blood pressure 165/95, heart rate is 68, respiratory of 22, temperature of 98.2 Fahrenheit oral and pulse ox of 95% room air. CT of the head is reported as cerebral atrophy and chronic small vessel ischemia. Previous surgery. Frontal lobe encephalomalacia on the right side. No acute intracranial abnormality. Brain unchanged compared to old exam and the old exam was on 07/06/2020. Patient had the the previous CT of the head on 07/06/2020 and reported as no acute intracranial abnormality. Postsurgical changes related to aneurysm clip with bifrontal encephalomalacia. I personally reviewed it and I felt the right more than the left. CT cervical spine was reported as spondylitic changes in the mid and lower cervical spine. No fracture. 2-D echo was reported as moderate concentric left ventricular hypertrophy. Ejection fraction between 55 and 60%. Left atrium is moderately dilated. EKG is reported as atrial fibrillation. ST and T-wave abnormality. Consider inferior ischemia. Abnormal EKG. CBC with differential is unremarkable. Chemistry panel is the initial glucose is 116 was slightly elevated but does not seem very remarkable. Patient initial troponin is 0.214 repeated is 0.228 and the the last one is 0.241 which is very slight trending up. TSH is 7.320 which is slightly elevated and the free T4 is 0.94 which is within normal limits at. The rest of the chemistry panel is unremarkable. Review of Systems Review of system: The 12 point system was reviewed and apparent positive and negative per HPI. Past Medical History Past Medical History: Coronary Artery Disease (CAD), Hypertension Additional Past Medical History / Comment(s): brain anuerysm with a previous intracranial hemorrhage, chronic atrial fibrillation, dementia, CAD and the patient has undergone a previous bypass surgery, hypertension, former smoker History of Any Multi-Drug Resistant Organisms: None Reported Past Surgical History: Coronary Bypass/CABG Past Psychological History: No Psychological Hx Reported Smoking Status: Former smoker Past Alcohol Use History: None Reported Past Drug Use History: None Reported Medications and Allergies Home Medications Medication Instructions Recorded Confirmed Type Diltiazem HCl [Cartia Xt] 240 mg PO DAILY 07/06/20 11/27/20 History QUEtiapine [SEROquel] 100 mg PO HS 07/06/20 11/27/20 History Allergies Allergy/AdvReac Type Severity Reaction Status Date / Time tetracycline Allergy Unknown Verified 11/27/20 09:31 zolpidem [From Ambien] Allergy Hallucinati Verified 11/27/20 09:31 ons Physical Examination - Vital Signs Vital Signs: Vital Signs Temp Pulse Resp BP Pulse Ox 11/27/20 09:00 64 18 152/109 97 11/27/20 06:39 97.6 F 65 18 132/90 96 11/27/20 01:41 98.2 F 68 22 165/95 95 Intake and Output 11/26/20 11/27/20 11/27/20 22:59 06:59 14:59 Other: Weight 72.575 kg GENERAL: The patient is lying in bed and is not in acute distress. He was lenin ding up and watching t.v. and eating his lunch. CHEST: The heart rate is regular rate rhythm. No murmurs to auscultation. No carotid bruit bilaterally. LUNG: Clear to auscultation bilaterally no wheezing noted throughout. Not labored breathing. ABDOMEN/GI: Bowel sounds present in all 4 quadrants. No tenderness to palpation throughout. NEUROLOGICAL: Higher mental function: The patient is awake, alert, oriented to self. He stated he was in the hospital but does not know the name. He could not tell me the year. He was able to name objects correctly (pen, watch and cup). Patient is following commands. No aphasia and no neglect. Cranial nerves: The pupils are round, equal and reactive to light and accommodation. Visual love are full to confrontation throughout. His left eye is deviated to the left lateral and slight upward (per patient that is chronic). Extraocular movement is intact no nystagmus is noted. Facial sensation is normal to touch throughout. The facial strength is normal throughout. Hearing is normal bilaterally to hand rub. Tongue is midline and moved [id number] without any difficulty. No dysarthria is noted. Shoulder shrug is normal bilaterally. Motor: Gait is slightly antalgic but otherwise normal with normal arm swings. The strength is left arm flexion is 5- Otherwise 5 over 5 throughout. Normal tone and bulk. Cerebellum: Normal finger to nose bilaterally. Sensation: Sensation is normal to touch throughout. Reflexes (right/left): 2+ throughout except patellar are 3+ bilaterally Plantars: Refused for it to be performed. Results - Laboratory Findings CBC and BMP: 11/27/20 02:11 11/27/20 02:11 Abnormal Lab Findings: Abnormal Labs 11/27/20 11/27/20 11/27/20 02:11 02:11 02:11 Chloride 109 H BUN 24 H Glucose 116 H Troponin I 0.214 H* TSH 7.320 H 11/27/20 11/27/20 05:41 09:23 Chloride BUN Glucose Troponin I 0.228 H* 0.241 H* TSH Assessment and Plan Assessment: His confusion seems chronic and per daughter not new is likely due to underlying cognitive impairement/dementia especially with bilateral frontal encephaloma lacia (right > left). History of a brain aneurysm with hemorrhage X2 status post clip with residual bilateral encephalomalacia the right more than the left (2006) Dementia for past two years (that is oriented X1-2 (self and place). Slight elevated troponin Chronic persistent atrial fibrillation not on any anticoagulation Hypertension History of coronary artery disease status post bypass graft Former nicotine dependence Plan: Ordered routine EEG. I'll not start the patient on an antiepileptic drug unless there is epileptiform discharges or seizure on the EEG. I ordered the vitamin B12, folate level. Patient denies of any back pain and per daughter he denies of back pain on two occasions. Will defer on any imaging at this time. Cardiology team is on board. Lipid panel and urinalysis is ordered and is pending Will Defer the rest of the medical management to the primary team. Upon discharge the patient needs to follow-up with a neurologist as outpatient within 1-2 weeks. The plan is discussed with the patient's daughter (Lalita) via phone. Thank you for the consultation. Amandeep Henson M.D. Neuro-hospitalist Time with Patient: Greater than 30
[2020-11-27 15:08] VITALS: BP 146/90; PULSE 76; RESP 16
[2020-11-27] MEDS ORDERED: IBUPROFEN 200 MG TAB PO STA (19:21)
[2020-11-27] MEDS ORDERED: LIDOCAINE 5% PATCH TOPICAL SCH (19:30)
[2020-11-27] MEDS ORDERED: ATORVASTATIN 40 MG TAB PO SCH (21:00)
--- NOTE | 2020-11-28 00:11 | P.HPIM ---
History of Present Illness Diagnoses: Chest pain with elevated troponin. noncardiac. Cleared by cancer registrar. Chest pain completely resolved upon discharge Chronic confusion, G negative. Related to his dementia with no recent worsening Back pain secondary to trauma and fall, no neurological deficits. Patient is mobile as he was seen moving around bed however he has difficulty when lying down, discharged on pain management Chest p history of coronary artery disease status post CABG History of chronic atrial fibrillation Hypertension History of dementia History of intracranial bleed secondary to intracranial aneurysm Enlarged prostate Recent history of covid pneumonia on 06/2020 Hospital course: This is a pleasant 75 years old male with past medical history of coronary artery disease and hypertension, history of brain aneurysm status post in tracranial bleed, chronic atrial fibrillation, dementia. Status post CABG. he presents because of chest pain. pain is moderate in severity, increased with movement. Nonspecific and Nonradiating. No Dyspnea or Coughing. Patient Also Reports Falling at Home and He Could Not Specify the Circumstances However He Hurt His Back. CT of the Chest and Abdomen Showing No Compression of Fracture of the Spine. Also He Has No Neurological Deficit As Patient Was Sitting Standing up Letter on by Bedside Eating His Meal. Also Patient Is with No Fusion but Looks like That His Baseline in View of His History of Dementia. Patient Has Been Evaluated by Neurologist Who Recommended EEG Which Was Negative and Neurologist Cleared Him for Discharge. Also Program Manager Environmental Planning Evaluated the Patient, His Troponin Is Flat and Does Not Associated with Acute Coronary Syndrome, Echocardiogram Was Unremarkable. Program Manager Environmental Planning Cleared the Patient for Discharge on Aspirin and Lipitor Upon Discharge Patient Chest Pain Is Completely Resolved When I Talked to the Daughter Miss Zhu over the Phone, However He Was Still Complaining from Some Back Pain Which bothers him when he lives in his bed, because of which lidocaine patch and 1 time dose of ibuprofen is ordered. Vitals on admission showing hypertension with blood pressure 165/95, patient is afebrile, slightly tachypneic and saturating 95% on room air. Vitals currently are stable. Labs including CBC, INR, BMP and liver enzymes are unremarkable. Troponin are elevated, 0.22. EKG showing atrial fibrillation's with a rate at 74 CT of the brain showing: No acute changes. CT of the chest, abdomen and pelvis with contrast: Atelectasis, thoracic aortic aneurysm at 4.4 cm, no evidence of acute traumatic injury within the abdomen and pelvis. A large prostate On admission patient was given aspirin 325 mg daily and nitroglycerin Review of systems CONSTITUTIONAL: No fever, no malaise, no fatigue. HEENT: No recent visual problems or hearing problems. Denied any sore throat. CARDIOVASCULAR: No orthopnea, PND, no palpitations, no syncope. PULMONARY: No shortness of breath, no cough, no hemoptysis. GASTROINTESTINAL: No diarrhea, no nausea, no vomiting, no abdominal pain. Normoactive bowel sounds. NEUROLOGICAL: No headaches, no weakness, no numbness. HEMATOLOGICAL: Denies any bleeding or petechiae. GENITOURINARY: Denies any burning micturition, frequency, or urgency. MUSCULOSKELETAL/RHEUMATOLOGICAL: Denies any joint pain, swelling, or any muscle pain. ENDOCRINE: Denies any polyuria or polydipsia. Problems and management plan were discussed with the patient and daughter and she verbalized understanding and acceptance Patient was found stable and can be discharged home and guarded prognosis however he needs follow-up as an outpatient. Patient was instructed to follow up with PCP within one week and patient agrees. Daughter states that she has the contact information for his PCP and she was hoping to follow-up in one week. Also patient was instructed to follow up with neurologist Dr. keren luu in 7-10 days and cancer registrar Dr. Brown and 1-2 weeks Physical exam -Gen: patient is a awake, confused at baseline, no distress CVS: S1-S2, RRR, no murmur Lungs: B/L CTA, no wheezing Abdomen: soft, no distention, no tenderness, positive bowel sounds Extremity: no leg edema or induration musculoskeletal: Mild back tenderness. No deformity Neurological: Cranial nerves are grossly intact. Strength 5/5. Sensation is intact Time spent more than 35 minutes Review of Systems CONSTITUTIONAL: No fever, no malaise, no fatigue. HEENT: No recent visual problems or hearing problems. Denied any sore throat. CARDIOVASCULAR: No orthopnea, PND, no palpitations, no syncope. PULMONARY: No shortness of breath, no cough, no hemoptysis. GASTROINTESTINAL: No diarrhea, no nausea, no vomiting, no abdominal pain. Normoactive bowel sounds. NEUROLOGICAL: No headaches, no weakness, no numbness. HEMATOLOGICAL: Denies any bleeding or petechiae. GENITOURINARY: Denies any burning micturition, frequency, or urgency. MUSCULOSKELETAL/RHEUMATOLOGICAL: Denies any joint pain, swelling, or any muscle pain. ENDOCRINE: Denies any polyuria or polydipsia. Past Medical History Past Medical History: Coronary Artery Disease (CAD), Hypertension Additional Past Medical History / Comment(s): brain anuerysm with a previous intracranial hemorrhage, chronic atrial fibrillation, dementia, CAD and the patient has undergone a previous bypass surgery, hypertension, former smoker History of Any Multi-Drug Resistant Organisms: None Reported Past Surgical History: Coronary Bypass/CABG Past Psychological History: No Psychological Hx Reported Smoking Status: Former smoker Past Alcohol Use History: None Reported Past Drug Use History: None Reported Medications and Allergies Home Medications Medication Instructions Recorded Confirmed Type Diltiazem HCl [Cartia Xt] 240 mg PO DAILY 07/06/20 11/27/20 History QUEtiapine [SEROquel] 100 mg PO HS 07/06/20 11/27/20 History Aspirin 81 mg PO DAILY #30 chew 11/27/20 Rx Atorvastatin [Lipitor] 40 mg PO HS #30 tab 11/27/20 Rx Famotidine [Pepcid] 20 mg PO BID 5 Days #10 tablet 11/27/20 Rx Lidocaine 5% Patch [Lidoderm 5% 1 patch TOPICAL DAILY #3 patch 11/27/20 Rx Patch] Allergies Allergy/AdvReac Type Severity Reaction Status Date / Time tetracycline Allergy Unknown Verified 11/27/20 09:31 zolpidem [From Ambien] Allergy Hallucinati Verified 11/27/20 09:31 ons Physical Exam Vitals: Vital Signs Temp Pulse Resp BP Pulse Ox 11/27/20 06:39 97.6 F 65 18 132/90 96 11/27/20 01:41 98.2 F 68 22 165/95 95 Intake and Output 11/26/20 11/27/20 11/27/20 22:59 06:59 14:59 Other: Weight 72.575 kg GENERAL: The patient is alert and oriented x3, not in any acute distress. Well developed, well nourished. HEENT: Pupils are round and equally reacting to light. EOMI. No scleral icterus. No conjunctival pallor. Normocephalic, atraumatic. No pharyngeal erythema. No thyromegaly. CARDIOVASCULAR: S1 and S2 present. No murmurs, rubs, or gallops. PULMONARY: Chest is clear to auscultation, no wheezing or crackles. ABDOMEN: Soft, nontender, nondistended, normoactive bowel sounds. No palpable organomegaly. MUSCULOSKELETAL: No joint swelling or deformity. EXTREMITIES: No cyanosis, clubbing, or pedal edema. NEUROLOGICAL: Gross neurological examination did not reveal any focal deficits. SKIN: No rashes. No petechiae Results CBC & Chem 7: 11/27/20 02:11 11/27/20 02:11 Labs: Abnormal Lab Results - Last 24 Hours (Table) 11/27/20 11/27/20 11/27/20 Range/Units 02:11 02:11 05:41 Chloride 109 H (98-107) mmol/L BUN 24 H (9-20) mg/dL Glucose 116 H (74-99) mg/dL Troponin I 0.214 H* 0.228 H* (0.000-0.034) ng/mL
[2020-11-28] MEDS ORDERED: ASPIRIN 325 MG TAB PO SCH (09:00)
[2020-11-28] MEDS ORDERED: ASPIRIN 81 MG PO SCH (09:00)
== END 2020-11-28 02:31 | disposition home or self-care (01) ==
LOC: EC 01:39 → 3SCARD 03:16 → INTOOBSV 03:16 → 3SCARD 05:09 → 4SSUR 13:13 → UNDODISIN 11-28 02:31
PROVIDERS: ADMIT Hospitalist; ATTEND Hospitalist
DX: R07.9 Chest pain, unspecified (principal); M54.9 Dorsalgia, unspecified; R77.8 Other specified abnormalities of plasma proteins; I25.10 Atherosclerotic heart disease of native coronary artery without angina pectoris; F03.90 Unspecified dementia, unspecified severity, without behavioral disturbance, psychotic disturbance, mood disturbance, and anxiety; I48.19 Other persistent atrial fibrillation; I71.2 Thoracic aortic aneurysm, without rupture; I10 Essential (primary) hypertension; Z95.1 Presence of aortocoronary bypass graft; N40.0 Benign prostatic hyperplasia without lower urinary tract symptoms; J98.11 Atelectasis; G93.89 Other specified disorders of brain; R06.82 Tachypnea, not elsewhere classified; R51.9 Headache, unspecified; Z86.16 Personal history of COVID-19; Z86.79 Personal history of other diseases of the circulatory system; Z87.01 Personal history of pneumonia (recurrent); Z87.891 Personal history of nicotine dependence; Z79.82 Long term (current) use of aspirin; Z79.899 Other long term (current) drug therapy; Z88.8 Allergy status to other drugs, medicaments and biological substances; Z88.1 Allergy status to other antibiotic agents; W18.2XXA Fall in (into) shower or empty bathtub, initial encounter; Y92.002 Bathroom of unspecified non-institutional (private) residence as the place of occurrence of the external cause
CPT/HCPCS: 99285; 36415; 95816; 93005; 93306; 84439; 80053; 84443; 82550; 82553; 83735; 84484; 85025; 85610; 85730; 72125; 70450; 71260; 74177; G0378 ×2; Q9967